=== PATIENT | female | born 1955 | race Caucasian/White ===

== ENCOUNTER 2016-11-24 17:30 | Inpatient (IN) | payer OTHER ==
--- NOTE | ~2016-11-24 | DS ---
Discharge Summary [facility] [address] [place]. [address] NAME: BELLA HARRISON : 51 STATUS : DIS IN PAT#: [id number] AGE: 61 ADM/REG DATE : 11/24/16 MR#: [id number] REPORT SERV DATE: 12/01/16 DICTATED BY: RAIZA SHEEHAN DATE: 11/30/16 REPORT STATUS : Draft TRANSCRIBED BY: MODL DATE: 11/30/16 ADMISSION DATE: 11/24/2016 DISCHARGE DATE: 11/30/2016 CONSULTING PHYSICIAN: Dr. Zhen Harrison of Ortho and Dr. Corado for Nephrology. Outpatient security team lead, Dr. Tom. FINAL DIAGNOSES: 1. Status post acute kidney injury on chronic kidney disease 3. 2. Acute polyarticular gout. 3. Chronic back pain. 4. Status post hyponatremia. 5. Status post hypokalemia. 6. Status post hypophosphatemia. 7. Status post hypomagnesemia. 8. Anemia of chronic disease. HOSPITAL COURSE: Please refer to the H and P done by myself dated on 11/25/2016 and my interim discharge summary done on 11/28/2016. Since my last discharge summary, the patient continued to improve, and we were able to taper down her steroids. We also started allopurinol on her and she was able to tolerate this without any side effects. Meanwhile, she started complaining about her chronic back pain and we started her on some Flexeril and it helped her and it actually made her work with Physical Therapy more. PT recommended [facility]. [facility], and today, we got [facility] to approve. The patient will now be discharged with the above diagnoses. She will follow up with the [place] doctor, then follow up with Dr. Elijah Garcia after [place] discharge and follow up with Nephro, Dr. Tom in two weeks. The patient will be on the following medications. Allopurinol 100 mg a day, Flexeril 5 mg three times a day, Protonix 40 mg a day; prednisone 30 mg tomorrow, 20 mg the next day, 10 mg then next day, then none; [place] 5/325 one tab p.o. q.8 hours p.r.n. pain and advised her to be off the Lasix and Maxzide for now until she follows up with Dr. Tom. This has been explained to her and she agreed and understood the plan. GERMAIN/SUSAN Raiza Sheehan M.D. / [id number] CC: Fauzia Carpenter M.D.
--- NOTE | ~2016-11-24 | HP ---
History And Physical [place] [id number] [facility] [place]. [address] NAME: BELLA HARRISON : 51 STATUS : ADM IN [facility]#: [id number] AGE: 61 ADM/REG DATE : 11/24/16 MR#: [id number] REPORT SERV DATE: 11/25/16 DICTATED BY: RAIZA SHEEHAN DATE: 11/24/16 REPORT STATUS : Draft TRANSCRIBED BY: MODL DATE: 11/24/16 DATE OF ADMISSION: 11/24/2016 MANAGER MAINTENANCE: Dimas Tom M.D. HISTORY OF PRESENT ILLNESS: This is a 61-year-old female, who was sent here from [place] for possible JENNY and right leg pain. The patient has been following up with Dr. Garcia and Dr. Tom. She was diagnosed with chronic kidney disease, and was told that her anemia, which is chronic is secondary to her kidney problem. Last Monday, which is about six days prior to present admission, the patient visited Dr. Tom, and she was told that her ultrasound shows decreased blood flow on her right kidney, and she will need to follow up with him the week after, which is tomorrow and discuss about possible dialysis. On Monday, which is 4 days prior to admission the patient woke up, and having some pain on her right leg. Her baseline is that she staggers and walks with a cane, and was still able to go to work, walking with a cane. However, the next day, Monday, three days prior to admission, the patient could not get up because of severe pain on her right leg. She tried to avoid walking by staying in bed and wears Depends at night, so that she does not have to get up. The patient thought that it would go away, however, it did not get any better. She still able to eat, but did not have any appetite and at one point had nausea and vomiting. She has tried to drink, but she noted that her p.o. intake is not as good. She continued taking her medication dose, which includes some diuretics in it. The patient finally decided to go to the hospital. She was brought to [facility], where they did blood work on her, which showed a BUN and creatinine of 68 and 2.4, sodium of 129, potassium of 3.1, bicarb of 14, chloride of 92, lactate of 1.91. WBC of 21.3, H and H of 10.1 and 30.4. The patient's potassium was replaced and gave her some fluids. They did an x-ray, which shows old healed left rib fractures, remodeling of the right humeral head is present, characteristic of old trauma, clear lungs with no infiltrate, pneumothorax or pleural effusion. Mediastinum is normal. The patient was then referred here, so that she can see her microfilm operator and also further workup of the leg. The patient denied any trauma. She has some dizziness, but no near syncopal or syncopal episode. She denied any hematemesis. She denies any dysuria or hematuria. Denies any bowel changes. No new rashes. She does have chronic joint pain, and the rest of the 14-point review of systems negative except as above. PAST MEDICAL HISTORY: Includes history of ulcers, hiatal hernia, CKD, spinal stenosis, anemia of chronic disease where she gets blood transfusions before. ALLERGIES: SHE HAS NO KNOWN DRUG ALLERGIES. MEDICATIONS: Include Tylenol, Lasix, Protonix, Maxzide. SOCIAL HISTORY: The patient drinks about 2 glasses of wine a day. No tobacco or recreational drug use. FAMILY HISTORY: She has a history of the dad with a stomach cancer, and the patient also has a history of abnormal loop of small bowel. History And Physical [address] [place]. [address] NAME: BELLA HARRISON : 51 STATUS : ADM IN [facility]#: [id number] AGE: 61 ADM/REG DATE : 11/24/16 MR#: [id number] REPORT SERV DATE: 11/25/16 DICTATED BY: RAIZA SHEEHAN DATE: 11/24/16 REPORT STATUS : Draft TRANSCRIBED BY: MODMorgan DATE: 11/24/16 PHYSICAL EXAMINATION: GENERAL: The patient is alert and oriented x3, not in cardiopulmonary distress. VITAL SIGNS: Include a pulse rate of 66, respiration of 18, saturation of 99% on room air, blood pressure of 118/71, temperature 98.8. NECK: She has supple neck. No JVD or carotid bruits. No lymphadenopathy. HEENT: [place] conjunctivae, anicteric sclerae. No pharyngeal erythema. LUNGS: Clear lungs. No rales, no wheezes. CARDIOVASCULAR: Regular rate and rhythm. No murmurs appreciated. ABDOMEN: Positive bowel sounds. Soft, nontender, no masses. Fair pulses. No edema. EXTREMITIES: Examination of the right leg reveals a tender left knee, but there do not seem to be any appreciable effusion, gross deformity, or open wound. There is tenderness on extreme knee flexion. There is also tenderness in the right ankle, but there is no open wound gross deformity or swelling. Examination of the right hip seems to be unremarkable. ASSESSMENT: 1. Right leg, knee, and ankle pain, inability to walk. 2. Chronic kidney disease, IV. 3. Leukocytosis. 4. Hypokalemia. 5. Hyponatremia. 6. History of esophageal ulcers and hiatal hernia. PLAN: Looking back at her records, the patient seems to have a creatinine that seems to be trending upward since the start of this year. I do not believe that she has an JENNY right now, but this must be a worsening CKD IV. It is unclear for me on what that recent imaging was done. I will get Nephrology to check on this thing. Meanwhile, we are going to check some x-rays of the right knee and ankle and get the Ortho evaluation, not sure if there is some ligament tears or tendon inflammation going on. I doubt if she has any fractures or dislocation. The patient will get a UA, urine culture. We will place a Hyman in, so we can measure the input and output. We will also get a blood culture, but hold of any kind of antibiotics while we figure out why the white count is elevated. We will give her some fluids and replace her potassium for now. This has been explained to the patient, and she agreed and understood the plan. GERMAIN/SUSAN Raiza Sheehan M.D. / [id number] CC: Fauzia Buchanan M.D.
--- NOTE | ~2016-11-24 | IDS ---
Interim Discharge Summary [facility] [address] [place]. [address] NAME: BELLA HARRISON : 51 STATUS : ADM IN [facility]#: [id number] AGE: 61 ADM/REG DATE : 11/24/16 MR#: [id number] REPORT SERV DATE: 11/28/16 DICTATED BY: RAIZA SHEEHAN DATE: 11/28/16 REPORT STATUS : Draft TRANSCRIBED BY: MODL DATE: 11/28/16 ADMISSION DATE: 11/24/2016 DISCHARGE DATE: CONSULTING PHYSICIANS: 1. Wood Model Maker, Dr. Corado. 2. Orthopedist, Dr. Zhen Harrison. INTERIM DIAGNOSES: 1. Acute polyarticular gout, improving. 2. Chronic back pain. 3. Status post acute kidney injury on chronic kidney disease 3. 4. Status post hyponatremia. 5. Status post hypokalemia. 6. Status post hypomagnesemia. 7. Hypophosphatemia. 8. Anemia of chronic disease. DIAGNOSTIC EXAMS: Right knee x-ray showing diffuse soft tissue swelling about the right knee joint. No other abnormality identified. Right ankle x-ray showing osseous demineralization. No acute abnormality. CAT scan of the brain showing moderate cerebral and cerebellar atrophy with intracranial atherosclerosis. No acute intracranial abnormality. HOSPITAL COURSE: Please refer to the H and P done by myself on 11/25/2016. Briefly, this is a 61-year-old female who was sent here from [place] for JENNY and right leg pain. The patient has been following up with Dr. Garcia and Dr. Tom and was diagnosed with CKD. It is unclear on what has been going on an outpatient basis as she told me that she was told by her kidney doctor that she has poor blood flow in her kidneys and would be needing dialysis and wanted to follow up with her in a week from the last visit. Unfortunately, she started having some right leg pain on top of her chronic back pain and was not able to get out of the bed. The patient was brought to [place] and they found an elevated creatinine and sent the patient here. We hydrated the patient, corrected her electrolytes, and we got Renal involved. With this conservative management, the patient's creatinine went down from 1.91 to 1.39. She was found to have multiple electrolyte abnormalities which are being replaced. Further evaluation revealed that she was having some multiple joint pains, but we felt some effusion in the right knee. We got Ortho involved, aspirated the joint, and found gout crystals. They signed off. We placed the patient on steroids, and we are seeing improvement of her swelling. We did not find any infection. So despite the white count being elevated, we discontinued the antibiotics. The patient right now is feeling better on her multiple joint pains namely the right knee, right ankle, left elbow, and left wrist, but is now having a hard time moving because of her chronic back pain. PT got involved and most likely they would recommend inpatient rehab and the patient agreed to that. So we will be continuing monitoring the patient, and we are going to get case management send her to Interim Discharge Summary [address] [place]. [address] NAME: BELLA HARRISON : 51 STATUS : ADM IN PAT#: [id number] AGE: 61 ADM/REG DATE : 11/24/16 MR#: [id number] REPORT SERV DATE: 11/28/16 DICTATED BY: RAIZA SHEEHAN. DATE: 11/28/16 REPORT STATUS : Draft TRANSCRIBED BY: SUSAN DATE: 11/28/16 inpatient rehab. A partner of [facility] will be following up the patient starting tomorrow morning. GERMAIN/SUSAN Raiza Sheehan M.D. / [id number] CC: Fauzia Buchanan M.D.
--- NOTE | ~2016-11-24 | CN ---
Consultation Report [place] [address] [facility] [place]. [address] NAME: BELLA DOUGLAS : 51 STATUS : ADM IN [facility]#: [id number] AGE: 61 ADM/REG DATE : 11/24/16 MR#: [id number] REPORT SERV DATE: 11/25/16 DICTATED BY: ZHEN DOUGLAS DATE: 11/25/16 REPORT STATUS : Draft TRANSCRIBED BY: MODL DATE: 11/25/16 CONSULTATION REPORT DATE OF CONSULTATION: 11/25/2016 CHIEF COMPLAINT: Right knee pain, right ankle pain, and left wrist pain. HISTORY OF PRESENT ILLNESS: The patient is a 61-year-old with a one-week history of right knee pain. She said that she has been having progressive right knee pain and right ankle pain which left her unable to weight bear on it. She said that she has noted swelling of her knee and her ankle. She denies any fever or chills at home. She also has left wrist pain bothering her for the last day. Pain with movement of her wrist. PAST MEDICAL HISTORY: Includes chronic kidney disease, spinal stenosis, hiatal hernia, anemia, chronic disease. ALLERGIES: NO KNOWN DRUG ALLERGIES. MEDICATIONS: Tylenol, Lasix, Protonix, and Maxzide. SOCIAL HISTORY: She drinks two glasses of wine a day. No tobacco. Lives with her , who is wheelchair bound. FAMILY HISTORY: Noncontributory. REVIEW OF SYSTEMS: Times 10 negative, except for above. PHYSICAL EXAMINATION: GENERAL: A well-developed, well-nourished female, in no acute distress. HEENT: Normocephalic and atraumatic. RESPIRATORY: Nonlabored respirations. Equal chest rise bilaterally. EXTREMITIES: No cyanosis or clubbing. She has edema with effusion of the right knee and swelling in the right ankle. SKIN: No rashes or lesions, right lower extremity. MUSCULOSKELETAL: Effusion of right knee pain with range of motion especially with terminal flexion. Tenderness to palpation around the knee. The right ankle with mild erythema and swelling. Soft tissue swelling around the ankle. Some range of motion with pain. 2+ pulse on the right lower extremity. Left wrist, no swelling, no erythema, pain with range of motion, tenderness on the dorsal wrist. PSYCH: Appropriate mood and affect. NEURO: Alert and oriented x3. ASSESSMENT: Consultation Report [place] [id number] [place] [address] NAME: BELLA DOUGLAS : 51 STATUS : ADM IN PAT#: [id number] AGE: 61 ADM/REG DATE : 11/24/16 MR#: [id number] REPORT SERV DATE: 11/25/16 DICTATED BY: ZHEN DOUGLAS DATE: 11/25/16 REPORT STATUS : Draft TRANSCRIBED BY: MODL DATE: 11/25/16 1. Right knee and ankle pain. 2. Chronic kidney disease. 3. Anemia. PLAN: I aspirated her right knee, which showed yellow, either purulent fluid or fluid within crystals, was sent into the lab for cell count as well as cultures, Gram stain and crystals. We will keep her n.p.o. until we find out the wrist and the ankle, possible tenosynovitis and inflammation. BSM/SUSAN Zhen Douglas MD / [id number] CC: Fauzia Buchanan M.D.
--- NOTE | ~2016-11-24 | CN ---
Consultation Report [facility] [address] [place]. [address] NAME: BELLA HARRISON : 51 STATUS : ADM IN PAT#: [id number] AGE: 61 ADM/REG DATE : 11/24/16 MR#: [id number] REPORT SERV DATE: 11/25/16 DICTATED BY: FRANCESCO CORADO DATE: 11/25/16 REPORT STATUS : Draft TRANSCRIBED BY: MODL DATE: 11/25/16 CONSULTATION DATE OF CONSULTATION: HISTORY OF PRESENT ILLNESS: This is a fairly pleasant, 61-year-old, female patient, seen in our office by Dr. Dimas Rios. She was seen at the request of her primary care provider Dr. Garcia for evaluation of rise in serum creatinine. She was known on consultation to chronically use nonsteroidal medications. A subsequent renal ultrasound identified a right renal atrophy supposedly due to right renal artery stenosis. There is no Doppler evidence of SMA or left renal artery stenosis. She had chronically used nonsteroidal medications due to chronic knee and back pain as she was previously very active and ran quite regularly. Creatinine on evaluation, 11/08/2016, was at 2.55. On subsequent followup, on 11/18/2016, it was at 1.94. Creatinine here today, on entry is at 1.91 with several obvious electrolyte abnormalities. Her CO2 is also depressed at 16. The patient is placed inpatient by the hospitalist service with an initial complaint of right lower extremity weakness and pain, and elevated serum creatinine. We are asked to evaluate the patient in light of her elevated serum creatinine by the hospitalist service in consideration for assistance in management, and the patient also states that she was concerned regarding "dialysis." She is awake and alert this morning, and is a reasonable historian. Denies current chest pain. No nausea, vomiting, or diarrhea. PAST MEDICAL HISTORY: Includes a history of ulcers, hiatal hernia, chronic kidney disease, history as above with Dr. Dimas Rios, spinal stenosis, anemia of chronic disease and has had required previous blood transfusions. ALLERGIES: SHE LISTS ALLERGY, NOW A LISINOPRIL. SHE HAD PREVIOUSLY USED LISINOPRIL PRIOR TO EVALUATION BY DR. RIOS IN OUR OFFICE. ACTIVE MEDICATIONS: Include heparin 5000 units subcu q.12h, Protonix 40 mg p.o. daily, normal saline at 100 mL an hour. P.r.n. Tylenol, morphine, and Phenergan is also available. REVIEW OF SYSTEMS: Completed. Please see HPI for pertinent details. SOCIAL HISTORY: Intermittent ETOH usage. No tobacco or recreational drug use. FAMILY HISTORY: Negative for end-stage renal disease or chronic kidney disease. PHYSICAL EXAMINATION: VITAL SIGNS: Blood pressure 112/65, temperature 99.7, heart rate is 98, respiratory rate is 17, she is 98% on room air. GENERAL: She is a small-framed woman, in no acute distress during evaluation. HEENT: Normocephalic and atraumatic. Normal ocular movements. No scleral icterus. No Consultation Report [place] [id number] [facility] [place]. [address] NAME: BELLA HARRISON : 51 STATUS : ADM IN [facility]#: [id number] AGE: 61 ADM/REG DATE : 11/24/16 MR#: [id number] REPORT SERV DATE: 11/25/16 DICTATED BY: FRANCESCO CORADO DATE: 11/25/16 REPORT STATUS : Draft TRANSCRIBED BY: SUSAN DATE: 11/25/16 conjunctival pallor is appreciated. NECK: Supple without thyromegaly. No JVD or mass. CHEST: Shows positive S1 and S2. No rubs or gallops. LUNGS: Clear to auscultation throughout. Normal expansion and effort bilaterally. GI: Examination shows positive bowel sounds in all four quadrants. No appreciable mass or tenderness. : Examination is deferred. NEUROLOGICALLY: She complains of weakness in her left upper extremity and is unable to lift it against gravity. Strength testing is difficult to perform as the patient complains of pain to touch on her left upper extremity. In discussion with the hospitalist service, she was able to move this extremity yesterday with no problems and no loss of strength. Primary complaint on admission was her right lower extremity which appears to be grossly intact at this point. Rudimentary neurologic testing otherwise appears to show that the patient is grossly intact overall. SKIN: Warm, dry, and intact to visualized surfaces. No rash, lesions, or ecchymosis. PSYCH: She is of appropriate mood and affect. LABORATORY DATA: Pertinent laboratories and imaging to this evaluation: Repeat serum potassium at 2.7. Ankle x-ray on the right, shows no acute abnormality. Knee of the same side shows diffuse tissue swelling. Otherwise, has no abnormality. Procalcitonin 19.81, magnesium 0.9. CBC shows a white blood cell count 15.4, RBC 2.57, hemoglobin 8.1, hematocrit 23.7, platelets of 314. Lactate is 0.5. Ionized calcium 3.58. Comprehensive metabolic panel; sodium 132, potassium 3.1, chloride 101, CO2 of 16, BUN 68, creatinine 1.91, reflected GFR at 27 mL/minute, glucose of 98, calcium 6.9, albumin 2.4, total protein 6.6, globulin 4.2, alkaline phos at 91, ALT and AST 7 and 15 respectively. IMPRESSION AND PLAN: This is a CKD, stage 3 to stage 4; chronic kidney disease patient, who is admitted to the hospitalist service for unilateral complaint of pain in her right lower extremity now with manifestations of the left upper extremity weakness and pain on exam this morning. She also has a noted leukocytosis and several electrolyte abnormalities. She is currently infusing with normal saline and also has what appears to be a calcium gluconate drip in light of her ionized calcium being low at 3.58. Discussed via telephone with her primary physician here, Dr. Kenneth Garcia, and we will undertake the following. In light of her chronic kidney disease, she is currently off KAROLINA inhibitors as well as ARBs, and lists KAROLINA inhibitor as an allergy, which will continue at this point. Advised the patient this morning that she is in no need of acute hemodialysis. We will change her fluids to quarter normal saline, 2 amps of bicarb with her depressed CO2 to continue the rate she is currently at, and evaluate blood culture, UA, C and S, and re-evaluate her renal panel considering her noted electrolyte abnormalities. Treat her serum potassium. Continue her calcium infusion at this point. Treat her magnesium and place her on vancomycin and Zosyn with Pharmacy to dose. Ask consultation from Neurologic Services for noted unilateral left upper extremity weakness. Ask Psychiatric Service to evaluate for question of psychosomatic disorder with manifestation of weakness, which seems to be transient in different areas of her body, given on 2 different examinations within 24 hours that weakness has moved from her right lower extremity to the left upper extremity. The patient will certainly need to be seen in Consultation Report [place] [address] [place]. [address] NAME: BELLA HARRISON : 51 STATUS : ADM IN PAT#: [id number] AGE: 61 ADM/REG DATE : 11/24/16 MR#: [id number] REPORT SERV DATE: 11/25/16 DICTATED BY: FRANCESCO CORADO DATE: 11/25/16 REPORT STATUS : Draft TRANSCRIBED BY: SUSAN DATE: 11/25/[address] Dimas Rios who has evaluated the patient at the request of Dr. Garcia, and will continue to be her primary supervisor brake repair post dismissal from this facility. Further modification of treatment plan may be made based on clinical presentation of the patient's laboratory results, further consultation with Renal attending. We appreciate consultation. We are glad to follow. DICTATED BY: Elijah Norwood NP JR/SUSAN Francesco Corado M.D. / [id number] CC: Kenneth Garcia M.D.
[~2016-11-24 17:30] MED LIST: ATARAX PO; ATV1 PO; COREG3 PO; EZFE 200200 MG PO; IBUPROFEN; IRON325 MG PO; KLOR-CON M2020 MEQ PO; L20 PO; MAGOX4 PO; MAXZIDE PO; MOTRIN IB200 MG PO; NEXIUM; OS500+D PO; PEPCID; PRILOSEC40 MG PO; PRIN20 PO; PRIN5 PO; PROTONIX PO; PROZAC PO; PROZAC40 MG PO; SEPTRA DS1 TAB PO; T PO; VITAMIN B PO; VITAMIN B-121000 MC1 PO
[2016-11-24] MEDS ORDERED: MAXZIDE PO (18:00)
[2016-11-24] MEDS ORDERED: PROTONIX PO ×2 (18:00)
[2016-11-24] MEDS ORDERED: L40 PO (18:00)
[2016-11-24] MEDS ORDERED: 8 HOUR650 MG PO (18:01)
[2016-11-25 05:23] LABS: INTERNATIONAL NORMAL RATI 1.1 UNITS (-)
[2016-11-25 05:32] LABS: PROTIME (NOT ORD) 14.3 SEC (12.0-14.5)
[2016-11-25 05:42] LABS: CHLORIDE, SERUM 101 MMOL/L (96-112); CO2 (CARBON DIOXIDE) 16 MMOL/L (24-34); CREATININE 1.91 MG/DL (0.55-1.02); GFR AFRICAN AMERICAN 32 ML/MIN (>=60); GFR NON AFRICAN AMERICAN 27 ML/MIN (>=60); GLUCOSE, SERUM 98 MG/DL (60-99); SGOT(AST) 15 U/L (5-40); SGPT(ALT) 7 U/L (5-65); SODIUM, SERUM 132 MMOL/L (135-148); TOTAL BILIRUBIN 0.5 MG/DL (0-1.2); TOTAL PROTEIN 6.6 G/DL (6.0-8.5)
[2016-11-25 05:53] LABS: BUN (BLOOD UREA NITROGEN) 68 MG/DL (6-23); POTASSIUM, SERUM 3.1 MMOL/L (3.5-5.3)
[2016-11-25 05:54] LABS: A/G RATIO 0.6 (0.7-1.9); ALBUMIN 2.4 G/DL (3.5-5.0); ALKALINE PHOSPHATASE 91 U/L (45-117); CALCIUM, SERUM 6.9 MG/DL (8.5-10.4); GLOBULIN 4.2 G/DL (2.5-4.1)
[2016-11-25 06:53] LABS: HEMOGLOBIN 8.1 g/dL (12.0-16.0); MEAN CORPUSCULAR HEMOGLOB 31.5 pg (26.0-34.0); MEAN PLATELET VOLUME 10.4 fL (9.2-13.0); PLATELET COUNT 314 10/3/uL (150-400); RED CELL COUNT 2.57 10/6/uL (4.0-5.6)
[2016-11-25 06:54] LABS: HEMATOCRIT 23.7 % (36.0-48.0); MANUAL DIFF YES %; MEAN CORPUS HGB CONC 34.2 g/dL (32.0-36.0); MEAN CORPUSCULAR VOLUME 92.2 fL (80-100); RBC DISTRIBUTION WIDTH 19.5 % (12.0-16.0); WHITE BLOOD CELLS 15.4 10/3/uL (4.5-10.5)
[2016-11-25 07:26] LABS: ANISOCYTOSIS 1+ (5-10/OIF) (0-5/OIF); LYMPHOCYTES 6 %; LYMPHOCYTES ABSOLUTE (CALC) 0.92 10/3/uL (0.67-4.30); MONOCYTES 6 %; MONOCYTES ABSOLUTE (CALC) 0.92 10/3/uL (0.21-1.20); NEUTROPHILS ABSOLUTE (CALC) 13.55 10/3/uL (2.02-8.40); PLATELET ESTIMATE ADQ (ADEQUATE); SEGMENTED NEUTROPHIL (0) 88 %; TOTAL NUCLEATED CELLS 100
[2016-11-25 08:00] LABS: PROCALCITONIN 19.81 ng/mL (<0.5)
[2016-11-25 12:46] LABS: ALBUMIN 2.3 G/DL (3.5-5.0); CHLORIDE, SERUM 102 MMOL/L (96-112); CO2 (CARBON DIOXIDE) 18 MMOL/L (24-34); CREATININE 1.73 MG/DL (0.55-1.02); GFR AFRICAN AMERICAN 36 ML/MIN (>=60); GFR NON AFRICAN AMERICAN 31 ML/MIN (>=60); IRON, SERUM 15 MCG/DL (35-150); SODIUM, SERUM 133 MMOL/L (135-148)
[2016-11-25 12:47] LABS: BUN (BLOOD UREA NITROGEN) 59 MG/DL (6-23); GLUCOSE, SERUM 148 MG/DL (60-99); PHOSPHORUS, SERUM 1.8 MG/DL (2.5-4.5); POTASSIUM, SERUM 3.3 MMOL/L (3.5-5.3)
[2016-11-25 16:03] LABS: BD FL LYMPH (NOT ORD) 3 %; BD FL SOURCE (NOT ORD) KNEE; BF BASO (NOT OF) 0 %; BF LARGE MONONUCLEAR 15 %; BODY FLUID EOS (NOT ORD) 0 %; BODY FLUID SEG (NOT ORD) 82 %
[2016-11-25 16:09] LABS: BODY FLUID RBC (NOT ORD) 40000 /MM3
[2016-11-25 16:10] LABS: BF TOTAL CELL CT (NOT ORD 83380 /MM3
[2016-11-25 21:28] LABS: ASCORBIC ACID (UR NOT ORDER) NEG (NEG); BILIRUBIN, URINE NEGATIVE (NEG); KETONE, URINE TRACE MG/DL (NEG); LEUKOCYTE ESTERASE(NOT OR NEG (NEG); WBC (NOT ORDERED) (RFLEX) 3 (0-5)
[2016-11-26 05:12] LABS: BASOPHILS 0.1 %; BASOPHILS ABSOLUTE 0.02 10/3/uL (0.0-0.16); EOSINOPHILS 0 %; HEMATOCRIT 23.7 % (36.0-48.0); HEMOGLOBIN 8.3 g/dL (12.0-16.0); IMMATURE GRANULOCYTES 1.5 %; IMMATURE GRANULOCYTES ABSOLUTE 0.24 10/3/uL (0.0-0.11); LYMPHOCYTES 2.2 %; LYMPHOCYTES ABSOLUTE 0.35 10/3/uL (0.67-4.30); MEAN CORPUSCULAR HEMOGLOB 32.7 pg (26.0-34.0); MEAN CORPUSCULAR VOLUME 93.3 fL (80-100); MEAN PLATELET VOLUME 10.4 fL (9.2-13.0); MONOCYTES 4.6 %; MONOCYTES ABSOLUTE 0.73 10/3/uL (0.21-1.20); NEUTROPHILS 91.6 %; NEUTROPHILS ABSOLUTE 14.59 10/3/uL (2.02-8.40); PLATELET COUNT 403 10/3/uL (150-400); RBC DISTRIBUTION WIDTH 19.5 % (12.0-16.0); RED CELL COUNT 2.54 10/6/uL (4.0-5.6); WHITE BLOOD CELLS 15.9 10/3/uL (4.5-10.5)
[2016-11-26 05:19] LABS: MANUAL DIFF NO %
[2016-11-26 05:20] LABS: CALCIUM IONIZED 3.87 MG/DL (3.80-4.80)
[2016-11-26 05:29] LABS: ALBUMIN 2.1 G/DL (3.5-5.0); CALCIUM, SERUM 7.6 MG/DL (8.5-10.4); CHLORIDE, SERUM 101 MMOL/L (96-112); CO2 (CARBON DIOXIDE) 21 MMOL/L (24-34); CREATININE 1.59 MG/DL (0.55-1.02); GFR AFRICAN AMERICAN 40 ML/MIN (>=60); GFR NON AFRICAN AMERICAN 34 ML/MIN (>=60); GLUCOSE, SERUM 170 MG/DL (60-99); POTASSIUM, SERUM 3.3 MMOL/L (3.5-5.3); SODIUM, SERUM 135 MMOL/L (135-148)
[2016-11-26 05:32] LABS: BUN (BLOOD UREA NITROGEN) 50 MG/DL (6-23); PHOSPHORUS, SERUM 2.7 MG/DL (2.5-4.5)
[2016-11-26 06:03] LABS: B NATRIURETIC PEPTIDE (BNP) 618.9 PG/ML (< 100.0)
[2016-11-27 07:29] LABS: BASOPHILS 0.1 %; BASOPHILS ABSOLUTE 0.01 10/3/uL (0.0-0.16); EOSINOPHILS 0 %; HEMATOCRIT 22.7 % (36.0-48.0); HEMOGLOBIN 7.8 g/dL (12.0-16.0); IMMATURE GRANULOCYTES 1.5 %; IMMATURE GRANULOCYTES ABSOLUTE 0.24 10/3/uL (0.0-0.11); LYMPHOCYTES 3.6 %; LYMPHOCYTES ABSOLUTE 0.56 10/3/uL (0.67-4.30); MEAN CORPUS HGB CONC 34.4 g/dL (32.0-36.0); MEAN CORPUSCULAR HEMOGLOB 31.8 pg (26.0-34.0); MEAN CORPUSCULAR VOLUME 92.7 fL (80-100); MEAN PLATELET VOLUME 10.7 fL (9.2-13.0); MONOCYTES 3.5 %; MONOCYTES ABSOLUTE 0.54 10/3/uL (0.21-1.20); NEUTROPHILS 91.3 %; NEUTROPHILS ABSOLUTE 14.16 10/3/uL (2.02-8.40); PLATELET COUNT 440 10/3/uL (150-400); RBC DISTRIBUTION WIDTH 19.6 % (12.0-16.0); RED CELL COUNT 2.45 10/6/uL (4.0-5.6); WHITE BLOOD CELLS 15.5 10/3/uL (4.5-10.5)
[2016-11-27 07:30] LABS: MANUAL DIFF NO %
[2016-11-27 07:39] LABS: ALBUMIN 1.9 G/DL (3.5-5.0); BUN (BLOOD UREA NITROGEN) 58 MG/DL (6-23); CALCIUM, SERUM 7.6 MG/DL (8.5-10.4); CHLORIDE, SERUM 100 MMOL/L (96-112); CO2 (CARBON DIOXIDE) 25 MMOL/L (24-34); CREATININE 1.57 MG/DL (0.55-1.02); GFR AFRICAN AMERICAN 40 ML/MIN (>=60); GFR NON AFRICAN AMERICAN 35 ML/MIN (>=60); GLUCOSE, SERUM 235 MG/DL (60-99); PHOSPHORUS, SERUM 1.9 MG/DL (2.5-4.5); POTASSIUM, SERUM 3.5 MMOL/L (3.5-5.3); SODIUM, SERUM 134 MMOL/L (135-148)
[2016-11-28 05:50] LABS: BASOPHILS 0.1 %; BASOPHILS ABSOLUTE 0.01 10/3/uL (0.0-0.16); EOSINOPHILS 0 %; HEMATOCRIT 22.7 % (36.0-48.0); HEMOGLOBIN 7.7 g/dL (12.0-16.0); IMMATURE GRANULOCYTES 1.7 %; IMMATURE GRANULOCYTES ABSOLUTE 0.27 10/3/uL (0.0-0.11); LYMPHOCYTES 3.1 %; LYMPHOCYTES ABSOLUTE 0.48 10/3/uL (0.67-4.30); MEAN CORPUS HGB CONC 33.9 g/dL (32.0-36.0); MEAN CORPUSCULAR HEMOGLOB 31.8 pg (26.0-34.0); MEAN CORPUSCULAR VOLUME 93.8 fL (80-100); MEAN PLATELET VOLUME 11.2 fL (9.2-13.0); MONOCYTES 5.5 %; MONOCYTES ABSOLUTE 0.87 10/3/uL (0.21-1.20); NEUTROPHILS 89.6 %; PLATELET COUNT 535 10/3/uL (150-400); RBC DISTRIBUTION WIDTH 20.1 % (12.0-16.0); RED CELL COUNT 2.42 10/6/uL (4.0-5.6); WHITE BLOOD CELLS 15.7 10/3/uL (4.5-10.5)
[2016-11-28 05:55] LABS: MANUAL DIFF NO %
[2016-11-28 06:01] LABS: BUN (BLOOD UREA NITROGEN) 57 MG/DL (6-23); CALCIUM, SERUM 7.9 MG/DL (8.5-10.4); CHLORIDE, SERUM 106 MMOL/L (96-112); CO2 (CARBON DIOXIDE) 22 MMOL/L (24-34); CREATININE 1.39 MG/DL (0.55-1.02); GFR AFRICAN AMERICAN 47 ML/MIN (>=60); GFR NON AFRICAN AMERICAN 40 ML/MIN (>=60); GLUCOSE, SERUM 189 MG/DL (60-99); POTASSIUM, SERUM 4.2 MMOL/L (3.5-5.3); SODIUM, SERUM 138 MMOL/L (135-148)
[2016-11-29 05:09] LABS: BUN (BLOOD UREA NITROGEN) 51 MG/DL (6-23); CHLORIDE, SERUM 107 MMOL/L (96-112); CO2 (CARBON DIOXIDE) 21 MMOL/L (24-34); CREATININE 1.14 MG/DL (0.55-1.02); GFR AFRICAN AMERICAN 59 ML/MIN (>=60); GFR NON AFRICAN AMERICAN 51 ML/MIN (>=60); GLUCOSE, SERUM 149 MG/DL (60-99); PHOSPHORUS, SERUM 2.4 MG/DL (2.5-4.5); POTASSIUM, SERUM 3.4 MMOL/L (3.5-5.3); SODIUM, SERUM 141 MMOL/L (135-148)
[2016-11-29 05:38] LABS: HEMATOCRIT 23.9 % (36.0-48.0); HEMOGLOBIN 7.9 g/dL (12.0-16.0); MEAN CORPUS HGB CONC 33.1 g/dL (32.0-36.0); MEAN CORPUSCULAR HEMOGLOB 31.5 pg (26.0-34.0); MEAN CORPUSCULAR VOLUME 95.2 fL (80-100); MEAN PLATELET VOLUME 11.1 fL (9.2-13.0); PLATELET COUNT 627 10/3/uL (150-400); RBC DISTRIBUTION WIDTH 19.8 % (12.0-16.0); RED CELL COUNT 2.51 10/6/uL (4.0-5.6); WHITE BLOOD CELLS 15.1 10/3/uL (4.5-10.5)
[2016-11-29 05:39] LABS: MANUAL DIFF YES %
[2016-11-29 06:14] LABS: IMMATURE GRANS ABSOLUTE (CALC) 0.15 10/3/uL (0.0-0.11); LYMPHOCYTES 3 %; LYMPHOCYTES ABSOLUTE (CALC) 0.45 10/3/uL (0.67-4.30); MONOCYTES 3 %; MONOCYTES ABSOLUTE (CALC) 0.45 10/3/uL (0.21-1.20); MYELOCYTES 3 %; NEUTROPHILS ABSOLUTE (CALC) 14.04 10/3/uL (2.02-8.40); PLATELET ESTIMATE INC (ADEQUATE); RBC MORPHOLOGY NORM (NORMAL); SEGMENTED NEUTROPHIL (0) 90 %; TOTAL NUCLEATED CELLS 100
[2016-11-30 05:03] LABS: BUN (BLOOD UREA NITROGEN) 50 MG/DL (6-23); CALCIUM, SERUM 8.2 MG/DL (8.5-10.4); CHLORIDE, SERUM 110 MMOL/L (96-112); CO2 (CARBON DIOXIDE) 21 MMOL/L (24-34); CREATININE 1.23 MG/DL (0.55-1.02); GFR AFRICAN AMERICAN 54 ML/MIN (>=60); GFR NON AFRICAN AMERICAN 47 ML/MIN (>=60); GLUCOSE, SERUM 128 MG/DL (60-99); PHOSPHORUS, SERUM 2.5 MG/DL (2.5-4.5); POTASSIUM, SERUM 3.6 MMOL/L (3.5-5.3); SODIUM, SERUM 142 MMOL/L (135-148)
== END 2016-11-30 19:02 | DRG 682 ==
LOC: 2SO 17:30
PROVIDERS: Hospitalist; Internal Medicine; Orthopaedic Surgery Sports Medicine; Registered Nurse
PROC: 0S9C3ZZ Drainage of Right Knee Joint, Percutaneous Approach (ICD-10-PCS; principal; 2016-11-25)
DX: N17.9 Acute kidney failure, unspecified (principal); R65.11 Systemic inflammatory response syndrome (SIRS) of non-infectious origin with acute organ dysfunction; E87.1 Hypo-osmolality and hyponatremia; M10.9 Gout, unspecified; M25.571 Pain in right ankle and joints of right foot; N18.4 Chronic kidney disease, stage 4 (severe); M25.561 Pain in right knee; E87.6 Hypokalemia; K44.9 Diaphragmatic hernia without obstruction or gangrene; D63.1 Anemia in chronic kidney disease; M48.00 Spinal stenosis, site unspecified; M54.9 Dorsalgia, unspecified; G89.29 Other chronic pain; E83.39 Other disorders of phosphorus metabolism; E83.42 Hypomagnesemia; M25.461 Effusion, right knee; I70.1 Atherosclerosis of renal artery; Z80.0 Family history of malignant neoplasm of digestive organs; Z87.11 Personal history of peptic ulcer disease
CPT/HCPCS: 70450; 73560-RT; 73610-RT; 80048; 80053; 80069; 80202; 81001; 82330; 82607; 82746; 83540; 83605; 83735; 83880; 84100; 84132; 84145; 84550; 85025; 85610; 85730; 87040; 87070; 87205; 89051; 89060; 97162-GP; 97165-GO; 97530-GP; 97535-GO; A9270-GY; J0610; J2920; J3370; J3475

== ENCOUNTER 2016-12-09 21:19 | Inpatient (IN) | payer OTHER ==
--- NOTE | ~2016-12-09 | CN ---
Consultation Report [facility] [address] [facility] [place]. [address] NAME: SHERRY HARRISON : 51 STATUS : ADM IN [facility]#: [id number] AGE: 61 ADM/REG DATE : 12/10/16 MR#: [id number] REPORT SERV DATE: 12/10/16 DICTATED BY: SANYA ERAZO DATE: 12/10/16 REPORT STATUS : Draft TRANSCRIBED BY: MODL DATE: 12/10/16 CARDIOLOGY CONSULTATION DATE OF CONSULTATION: INDICATIONS: Abnormal troponin. HISTORY OF PRESENT ILLNESS: Sherry Harrison is a 61-year-old female with no history of ischemic heart disease, no history of cardiomyopathy. 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 She has had a bit of a complicated course. She apparently was in [facility] recently with renal issues, some hyponatremia, leukocytosis, acute on chronic kidney disease. She was then sent to [facility] for a period of time. There has been a concern for underlying sepsis refractory to antibiotics and she was sent back to the hospital, febrile with sinus tachycardia and elevated white count. She reports no chest pain. She reports no chronic shortness of breath. She was told was from her kidneys. No syncope. Some lower extremity edema. No active orthopnea. PAST MEDICAL HISTORY: Chronic kidney disease, history of renal artery stenosis with right renal atrophy, anemia of chronic disease, deconditioning, gout with polyneuropathy, reflux disease. PRESENT MEDICATIONS: Acyclovir, albumin, allopurinol, Bumex, Citracal, Flexeril, Colace, Neurontin, heparin, Levaquin, multivitamin, magnesium oxide, Protonix, Florastor, and MiraLAX. ALLERGIES: LISINOPRIL. SOCIAL HISTORY: No present smoking. FAMILY HISTORY: Reviewed and noncontributory. REVIEW OF SYSTEMS: As per the HPI. Otherwise, all review of systems negative. PHYSICAL EXAMINATION: VITAL SIGNS: Blood pressure 124/71, pulse 127, respiratory rate is 18. Telemetry is sinus tachycardia. ECG is sinus tachycardia. GENERAL: Appears stated age, no distress. EYES: Sclerae anicteric, no arcus senilis. MOUTH: Oral mucosa moist, lips acyanotic. NECK: Jugular venous pressure normal, no carotid bruits. LUNGS: Clear to auscultation bilaterally, normal inspiratory effort. CARDIAC: Irregular rhythm. Tachycardia. ABDOMEN: Soft, nondistended, nontender. Consultation Report [address] [place]. [address] NAME: SHERRY HARRISON : 51 STATUS : ADM IN [facility]#: [id number] AGE: 61 ADM/REG DATE : 12/10/16 MR#: [id number] REPORT SERV DATE: 12/10/16 DICTATED BY: SANYA ERAZO DATE: 12/10/16 REPORT STATUS : Draft TRANSCRIBED BY: MODL DATE: 12/10/16 EXTREMITIES: Mild edema. SKIN: Warm and dry. NEURO/PSYCH: Alert and oriented, nonfocal, mood appropriate. DATA: Creatinine 1.8. Hemoglobin 8.6, white count 21. BNP a 1051. Chest x-ray currently pending. Troponin 0.17. Procalcitonin 3.6. IMPRESSION: 1. Abnormal troponin likely demand ischemia event related to sepsis and sinus tachycardia. 2. Abnormal troponin, the Bmax is ordered, likely related to chronic kidney disease. 3. Chronic kidney disease with acute kidney injury. 4. Sepsis. RECOMMENDATIONS: We will obtain echocardiogram. Note that Bmax is already ordered. We will follow up troponin. ANGI/SUSAN Sanya Erazo M.D. / [id number] CC: Fauzia Jackson M.D.
--- NOTE | ~2016-12-09 | CN ---
Consultation Report [facility] [address] [facility] [place]. [address] NAME: BELLA HARRISON : 51 STATUS : ADM IN [facility]#: [id number] AGE: 61 ADM/REG DATE : 12/10/16 MR#: [id number] REPORT SERV DATE: 12/19/16 DICTATED BY: TEX PLUMMER DATE: 12/19/16 REPORT STATUS : Draft TRANSCRIBED BY: MODL DATE: 12/19/16 CONSULTATION DATE OF CONSULTATION: REASON FOR REFERRAL: Abnormal bone marrow. HISTORY OF PRESENT ILLNESS: Misael Go presented to the hospital on 12/10/2016, with several weeks of increasingly severe lower back pain associated with the fever and leukocytosis. It is only partially relieved with pain medications. At the time of admission, her white blood cell count was 21.5, hemoglobin 8.6, platelets of 407. She has had evaluation including an MRI of the spine which I have personally reviewed. The bone marrow was markedly abnormal. There is evidence of diskitis. She has had a biopsy. The bone marrow is consistent with a reactive or activated bone marrow which can occur with bleeding and anemia, myelodysplastic syndrome, myeloma, or an infection. She has had a polyarticular arthritis possibly related to gout. PAST MEDICAL HISTORY: Possible diskitis, inflammatory polyarticular arthritis, anemia CKD stage 3, and spinal stenosis. SOCIAL HISTORY: She is a former cigarette smoker. She does not drink alcohol. She is . FAMILY HISTORY: Her father had stomach cancer. There is no history of blood disorder. REVIEW OF SYSTEMS: Complete review of systems was performed and is positive as per the HPI. She has not had cough or chest pain. She does have severe back pain which persists. PHYSICAL EXAMINATION: GENERAL: Reveals a frail, thin woman, in noted acute distress. VITAL SIGNS: Temperature 97.5, blood pressure 113/66, pulse 19. HEENT: Eye exam showed the lids and conjunctivae are without lesions. The pupils are equal, round, reactive. Mouth; the lips and gums show no abnormalities. Oropharynx without thrush or stomatitis. NECK: Supple. There is no thyromegaly or mass. SKIN: Without rash, nodules, or ecchymoses. LYMPHATIC: Lymph node exam shows no cervical, supraclavicular, or axillary nodes. CARDIOVASCULAR: Reveals a regular rate and rhythm without murmur. There is no peripheral edema. LUNGS: Clear to auscultation bilaterally with normal respiratory effort. ABDOMEN: Soft. There is no hepatosplenomegaly or mass. PSYCHIATRIC: Shows normal insight and judgment with appropriate mood and affect. Consultation Report [facility] [address] [place]. [address] NAME: BELLA HARRISON : 51 STATUS : ADM IN PAT#: [id number] AGE: 61 ADM/REG DATE : 12/10/16 MR#: [id number] REPORT SERV DATE: 12/19/16 DICTATED BY: TEX PLUMMER DATE: 12/19/16 REPORT STATUS : Draft TRANSCRIBED BY: MODL DATE: 12/19/16 DATA REVIEW: CBCs are as outlined in the HPI. MRI is as described which I personally reviewed. The CT scan from 12/10/2016, which was also personally reviewed, shows some straining of the kidney. There was no adenopathy or splenomegaly to suggest lymphoma. ASSESSMENT: 1. Abnormal bone marrow. I suspect this is secondary to whatever her underlying inflammatory processes. I will follow up the biopsy of the disk with you. 2. Anemia, likely anemia of chronic disease, anemia of chronic kidney disease. We will follow. 3. Leukocytosis, this has improved. I will be following along with you. DAYAN/SUSAN Tex Plummer M.D. / [id number] CC: Jerome Albarado Jr, MD Elijah Garcia M.D.
--- NOTE | ~2016-12-09 | CN ---
Consultation Report [facility] [address] [place]. [address] NAME: BELLA HARRISON : 51 STATUS : DIS IN PAT#: [id number] AGE: 61 ADM/REG DATE : 12/10/16 MR#: [id number] REPORT SERV DATE: 12/26/16 DICTATED BY: LISSETT VELASQUEZ II DATE: 12/26/16 REPORT STATUS : Draft TRANSCRIBED BY: MODL DATE: 12/26/16 DATE OF CONSULTATION: 12/15/2016 CHIEF COMPLAINT: Low back pain with leg pain. HISTORY OF PRESENT ILLNESS: Ms. Harrison is a very friendly 61-year-old female, who works at the [employer]. She reports a history of osteoporosis as well as back problems. She had considered surgery several years ago, but ultimately did not pursue it. I was asked to see her for back and leg pains. She reports that the pain is severe when she stands and tries to walk. The pain radiates from the back into the legs. She also was hospitalized on this admission with sepsis and a UTI and pneumonia. PAST MEDICAL HISTORY: As above. SOCIAL HISTORY: She does take care of her also, but she also works again at the [employer] here in [place]. MEDICATIONS: Please see the MAR. REVIEW OF SYSTEMS: The patient denies any bowel or bladder changes. She denies any chest pain or shortness of breath. PHYSICAL EXAMINATION: GENERAL: Reveals a female in no distress. She is awake, alert, and oriented. CHEST: Reveals no stridor on inspiration or expiration. CARDIOVASCULAR: Regular rate and rhythm when I palpate the radial pulse. ABDOMEN: Soft. PSYCHIATRIC: Reveals no agitation nor confusion. NEUROLOGICAL: She is 4/5 in lower extremities. She reports normal sensation. IMAGING: MRI shows severe multilevel stenosis with a spondylolisthesis at L4-5. There does appear to be some significant signal change within the disk at L4-5, which could represent acute diskitis. IMPRESSION AND PLAN: Severe back and leg pains. She appears to have a significantly degenerative spine with stenosis and spondylolisthesis. However, I cannot rule out completely the fact that she may have acute diskitis at L4-5. I have discussed this with Dr. Everette Yo and also we will order a CT-guided biopsy of L4-5 to see if this can delineate whether there is infection or not. JJ/SUSAN Consultation Report [facility] [address] [place]. [address] NAME: BELLA HARRISON : 51 STATUS : DIS IN PAT#: [id number] AGE: 61 ADM/REG DATE : 12/10/16 MR#: [id number] REPORT SERV DATE: 12/26/16 DICTATED BY: LISSETT VELASQUEZ II DATE: 12/26/16 REPORT STATUS : Draft TRANSCRIBED BY: MODMorgan DATE: 12/26/16 Lissett Velasquez II, M.D. / [id number] CC: Fauzia Jackson M.D.
--- NOTE | ~2016-12-09 | IDS ---
Interim Discharge Summary [facility] [address] [place]. [address] NAME: BELLA HARRISON : 51 STATUS : ADM IN [facility]#: [id number] AGE: 61 ADM/REG DATE : 12/10/16 MR#: [id number] REPORT SERV DATE: 12/18/16 DICTATED BY: JR. ALBARADO WILLIAM JOHN DATE: 12/18/16 REPORT STATUS : Draft TRANSCRIBED BY: MODMorgan DATE: 12/18/16 ADMISSION DATE: 12/10/2016 DISCHARGE DATE: This interim summary covers the time period from 12/13/2016 through 12/18/2016. WORKING DIAGNOSES: 1. Sinus tachycardia with normal TSH and echocardiogram. 2. L4-L5 abnormality on MRI, possibly consistent with osteomyelitis and diskitis. 3. Inflammatory polyarticular arthritis. 4. Microcytic anemia. 5. Chronic kidney disease, stage III with non-nephrotic range proteinuria. 6. History of spinal stenosis. OPERATIONS, PROCEDURES, AND TREATMENTS: 1. CT of the brain done on 12/09/2016, which showed no acute intracranial pathology, there was stable moderate diffuse cerebral involutional changes, and probable subtle 2 mm old lacunar infarct in left basal ganglia. 2. Chest x-ray done on 12/09/2016, which showed cardiomegaly, hiatal hernia. No other findings. 3. CT of the abdomen and pelvis done on 12/10/2016, which showed minimal stranding around the lower pole the right kidney with a non-obstructed collecting system. The gallbladder was full and borderline distended with evidence for gallstones. No evidence for ductal dilatation. There was some whole body anasarca. 4. Portable chest x-ray done on 12/11/2016, it was normal. 5. Chest x-ray done on 12/14/2016, which showed subsegmental atelectasis and/or infiltrate in the right hilum. 6. Ventilation perfusion scan done on 12/14/2016, which showed asymmetrical activity of the lungs with greater activity on the right than the left, findings possibly due to partial obstruction of the right mainstem bronchus. There was no large subsegmental or larger perfusion abnormality with normal ventilation, low probability of pulmonary embolism. 7. Venous Doppler ultrasound, bilateral lower extremities, showed no evidence of clot in either extremity. 8. MRI of the lumbar spine done on 12/14/2016, which showed signature alteration with loss of endplate definition at L4-L5, most suspicious for underlying diskitis and osteomyelitis. There is similar but less progress changes at L2-L3 endplates. There was spondylitic change from L3-S1 and markedly abnormal bone marrow being hypercellular and heterogeneous, it would fit with severe anemia, and reactivation bone marrow, versus widespread metastatic disease or multiple myeloma, or some other form of blood dyscrasia. 9. Deep bone biopsy of the disk and lumbar spine on 12/16/2016, Gram stain is without organisms. Pathology and cultures are pending. CURRENT MEDICATIONS: Please see today's list. Interim Discharge Summary [facility] [address] [place]. [address] NAME: BELLA HARRISON : 51 STATUS : ADM IN [facility]#: [id number] AGE: 61 ADM/REG DATE : 12/10/16 MR#: [id number] REPORT SERV DATE: 12/18/16 DICTATED BY: JR. ALBARADO WILLIAM JOHN DATE: 12/18/16 REPORT STATUS : Draft TRANSCRIBED BY: SUSAN DATE: 12/18/16 HOSPITAL COURSE: Briefly, the patient is a 61-year-old female presented from [facility] with increased weakness, debility, volume overload, and evidence of infection. The patient was hospitalized from 11/24/2016 through 11/30/2016 at [facility] for what was felt to be an acute gout flare with bilateral ankles and feet, plus acute kidney injury. She was stabilized, but was found to have severe debility and was subsequently transferred to [facility] for rehab. About one week prior chest x-ray at [facility], showed the patient had an underlying pneumonia, she was started on Levaquin. The patient made no progress in therapy and complained of progressive low back pain. With 10/10 pain without sciatica. She was subsequently transferred back to [facility]. Please see Dr. Kessler's dictated history and physical for further details. The patient was admitted to [facility] regarding her sinus tachycardia. The patient continuously ran a heart rate in the 110s to 120s. She denied any change in the pain as a cause. She underwent an echocardiogram which showed left ventricular systolic function of 53%, mild diastolic dysfunction. Right ventricle function was intact. No valvular abnormalities. She also had a thyroid-stimulating hormone which was normal. Her medications were changed, increased her metoprolol to 50 b.i.d. with subsequent adding of oral diltiazem. Regarding the patient's inflammatory polyarticular arthritis, she had a rather extensive workup, including an SETH that was less than 1:40, serum protein electrophoresis, which showed a faint questionable restriction noted in the gamma region. Immunofixation was normal. She continued to complain of back pain. She has subsequently underwent an MRI of the lumbar spine and was seen in consultation by Spine Surgery. The MRI is as detailed above and was suspicious for osteomyelitis and diskitis. She was not started on antibiotics. She had a deep bone biopsy which is currently pending, both for culture and pathology. Spine surgery will further evaluate. Regarding abnormal bone marrow seen on MRI, she has had a serum protein electrophoresis. I will defer further workup to Hematology, we will request a Hematology consult in the morning. As to the patient's chronic kidney disease. She was followed briefly by Nephrology, as she proved to have non nephrotic range proteinuria. The patient's care will be assumed by my partner in the morning. CONSULTING PHYSICIANS: 1. Dr. Everette Yo of Infectious Disease. 2. Dr. Sanya Erazo of Cardiology. WJF/SUSAN Jerome Albarado Jr, MD Interim Discharge Summary [address] [address] NAME: BELLA HARRISON : 51 STATUS : ADM IN [facility]#: [id number] AGE: 61 ADM/REG DATE : 12/10/16 MR#: [id number] REPORT SERV DATE: 12/18/16 DICTATED BY: JR. ALBARADO WILLIAM JOHN DATE: 12/18/16 REPORT STATUS : Draft TRANSCRIBED BY: YOLANDAL DATE: 12/18/16 / [id number] CC: Jerome Albarado Jr, MD John Laramore, M.D.
--- NOTE | ~2016-12-09 | DS ---
Discharge Summary [facility] [address] [facility] [place]. [address] NAME: BELLA HARRISON : 51 STATUS : DIS IN PAT#: [id number] AGE: 61 ADM/REG DATE : 12/10/16 MR#: [id number] REPORT SERV DATE: 12/23/16 DICTATED BY: MARIE BLOUNT DATE: 12/22/16 REPORT STATUS : Draft TRANSCRIBED BY: MODL DATE: 12/22/16 ADMISSION DATE: 12/10/2016 DISCHARGE DATE: 12/22/2016 DISCHARGE DIAGNOSES: 1. Generalized weakness with inability to walk with severe spinal stenosis multilevel. 2. Chronic kidney disease with anasarca presentation on initial presentation. 3. Hypoalbuminemia. 4. Inflammatory arthritis. 5. Hypokalemia and hypomagnesemia on presentation on admission. CONSULTANTS: 1. Everette Yo M.D. 2. Shankar Velasquez M.D. 3. Nephrology Associate. HISTORY OF PRESENT ILLNESS: This is a 61-year-old female patient, who was transferred from [facility] with complaint of inability to perform the rehabilitation due to the severe low back pain and weakness, and swelling. Please see dictated H and P done by Dr. Kessler. The patient was admitted to the hospital with severe back pain, chronic kidney disease with elevated BNP with volume overload presentation. Please see dictated H and P. HOSPITAL COURSE: She was admitted to the hospital with above problems. Seen by multiple consultants due to the concern for the sepsis. Dr. Yo has been following this patient. She was not given any antibiotics. She did not show any worsening clinical presentation in terms of Infectious Disease soriano. However, she had a recent hospitalization with the same problem. At that time, she was treated for inflammatory arthritis with steroid, and she was put on allopurinol for the treatment. When she came in, she got a dose of diuretics and dose of steroid which made a significant improvement in her joint feeling and able to support her spine. After that she was also found to have a severe hypoalbuminemia with severe electrolyte imbalance which is hypokalemia and hypomagnesemia which was all replaced. She does not have any nephritic range on high proteinuria, but she does have significant proteinuria and hypoalbuminemia. She is a vegetarian and her protein intake is very poor. Supplement of the protein orally is given. She was remained on allopurinol dose three times a day. Due to the back pain she was checked with MRI which showed a possible bone marrow signal change. Dr. Mathews was also called for abnormal bone marrow signal on MRI. The patient was decided to have a spine biopsy for the spinal lesion to rule out acute infection. Dr. Velasquez was consulted and he did a biopsy for the spine which the results are not showing any acute inflammation, it showed chronic reactive changes only. Although, the biopsies spasticity is very low. The patient did not have any other clinical symptoms of disc infection. Also the patient declined to have any further surgery for her back. Therefore, the patient has been directed to get more rehabilitation, and she chose to go to [facility] and [facility] has approved for her to stay for her rehabilitation. She will be discharged to [facility] today for ongoing rehabilitation. I explained to her about her current Discharge Summary [address] [place]. [address] NAME: BELLA HARRISON : 51 STATUS : DIS IN PAT#: [id number] AGE: 61 ADM/REG DATE : 12/10/16 MR#: [id number] REPORT SERV DATE: 12/23/16 DICTATED BY: MARIE BLOUNT DATE: 12/22/16 REPORT STATUS : Draft TRANSCRIBED BY: SUSAN DATE: 12/22/16 situation and the back pain and treatment, and she voiced understanding. DISCHARGE MEDICATIONS: 1. Continue allopurinol 100 mg three times a day. 2. Calcium Citrate-Vitamin three times a day. 3. Flexeril 5 mg every hour. 4. Cardizem CD 120 mg once a day. 5. Colace 100 mg twice a day. 6. Lasix 10 mg once a day. 7. Neurontin 100 mg twice a day and 300 mg once at bedtime. 8. Multivitamin once a day. 9. Mag-Ox 400 mg twice a day. 10.Lopressor 50 mg once a day. 11.MD Leon twice a day. 12.Protonix 40 mg once at nighttime. 13.MiraLAX powder once a day. 14.Potassium 40 mEq twice a day. 15.Probiotic once a day. 16.Tylenol 325 mg once a day. 17.Xanax as needed. 18.Dulcolax as needed. 19.Hydrocodone as needed. 20.Atrovent twice a day. 21.Beneprotein one pack three times a day. DISPOSITION: The patient is discharged to [facility] for rehabilitation. TIME SPENT: More than 30 minutes on coordination and education. DICTATED BY: Fauzia Jackson/SUSAN Marie Blount M.D. / [id number] CC: Fauzia Jackson M.D.
--- NOTE | ~2016-12-09 | HP ---
History And Physical [place] [id number] [facility] [place]. [address] NAME: BELLA HARRISON : 51 STATUS : ADM IN [facility]#: [id number] AGE: 61 ADM/REG DATE : 12/10/16 MR#: [id number] REPORT SERV DATE: 12/10/16 DICTATED BY: LILLI ALBARADO DATE: 12/10/16 REPORT STATUS : Draft TRANSCRIBED BY: MODL DATE: 12/10/16 DATE OF ADMISSION: 12/10/2016 CHIEF COMPLAINT: A 61-year-old female presenting from [facility] with increasing weakness, debilitation, volume overload, and evidence of infection unresponsive to Levaquin. HISTORY OF PRESENTING ILLNESS: The patient's history was obtained through careful interview with the patient, coupled with review of [facility] and [facility] medical records. The patient was hospitalized between 11/24/2016 and 11/30/2016 for what was described as an acute gout flare of her bilateral ankles and feet plus acute kidney injury. She was stabilized, but had severe weakness and debilitation, and in fact, was so weak that she could not even get out of bed. Therefore, she was transferred to [facility], where she has been attempted for rehabilitation, but without really any progress at all. The patient states that she is unable to walk and has just been bed bound since she has been at [facility] over these last 10 days. About a week ago, a chest x-ray was obtained at [facility] and it was thought that the patient had underlying pneumonia. She was started on Levaquin for this. Finally, [facility] realized that the patient was not progressing with physical therapy at all and just seemed to be getting more and more debilitated and ill, so felt that she needed to come back to our emergency department for further evaluation and stabilization. Her main pain complaint has actually been progressive lower back pain. She describes it as an aching quality discomfort exacerbated by any kind of movement of her back and attempts at weightbearing. A 10/10 excruciating pain as she describes it. It does not radiate into her pelvis or her legs. There is no sciatica. She has had to be evaluated by Wound Care for blisters around her ankles and feet in the area where she was apparently being treated for "gout". She describes abdominal bloating, but no pain associated with this. No nausea or vomiting. She has gained 13 pounds in fluid over the last two weeks. No dysuria. No urinary frequency. The patient has noticed a prominent wheeze and shortness of breath characterized by dyspnea on exertion. No chest pain. No orthopnea. REVIEW OF SYSTEMS: Otherwise, a 14-point review of systems was obtained and was negative. PAST MEDICAL HISTORY: 1. Chronic kidney disease stage 3. Baseline creatinine seems to be around 1.3, followed History And Physical [address] [address] NAME: BELLA HARRISON : 51 STATUS : ADM IN [facility]#: [id number] AGE: 61 ADM/REG DATE : 12/10/16 MR#: [id number] REPORT SERV DATE: 12/10/16 DICTATED BY: LILLI ALBARADO DATE: 12/10/16 REPORT STATUS : Draft TRANSCRIBED BY: MODMorgan DATE: 12/10/[address] Garcia. 2. Peptic ulcer disease, esophageal ulcers, seen by Dr. Camargo. 3. Anemia with history of multiple transfusions. 4. Gout. 5. Spinal stenosis. 6. Hypocalcemia. 7. Cecal arterial venous malformation. 8. Stroke by CT scan, a lacunar left basal ganglia. 9. Cholelithiasis. PAST SURGICAL HISTORY: 1. Right forearm. 2. Tubal reconstruction? ALLERGIES: LISINOPRIL. SOCIAL HISTORY: Quit smoking more than 10 years ago. Was drinking about two glasses of wine a night. , but is in poor health, wheelchair bound. She has no biological children. She has recently been rehabilitating at [facility]. FAMILY HISTORY: Father with stomach cancer. CURRENT MEDICATIONS: Include Tylenol, acyclovir 800 mg p.o. daily, allopurinol 100 mg p.o. daily, Xanax 0.25 mg p.o. t.i.d., Dulcolax, calcium citrate, Flexeril every eight hours, Colace 100 mg p.o. b.i.d., Lasix 10 mg p.o. daily, Neurontin 100 mg p.o. b.i.d. and 300 mg at bedtime, hydrocodone, heparin 5000 units subcutaneous twice a day, Atrovent, lactobacillus, Levaquin 750 mg p.o. daily, magnesium 400 mg p.o. b.i.d., multivitamin, Protonix 40 mg p.o. daily, MiraLAX packet daily, potassium 20 mEq p.o. daily, MD Leon swish and swallow. PHYSICAL EXAMINATION: VITAL SIGNS: Temperature 100.2, pulse 147, blood pressure 94/76, respiratory rate 18, and O2 saturation 95% on room air. GENERAL: A very debilitated, cooperative, and ill-appearing female. She appears to be in distress from discomfort. HEENT: Pupils equal, round, and reactive to light. No conjunctival pallor. No scleral icterus. Nares are patent. Oropharynx is clear of obstruction. Moist mucous membranes. NECK: Trachea midline. No thyromegaly. LYMPH: No cervical lymphadenopathy. No supraclavicular lymphadenopathy. RESPIRATORY: The patient has scattered expiratory wheezes particularly in the apices of each lung. No rhonchi though. No rales. I do not appreciate focal egophony. She does have a labored respiratory effort. CARDIOVASCULAR: Tachycardic. Regular rhythm. No murmurs, rubs, or gallops. The patient does have pitting lower extremity edema. ABDOMEN: Quite distended by examination what appears to be an underlying fluid wave, tender throughout, but nonfocal. She has guarding, but no rebound effect. No hepatosplenomegaly. DERMATOLOGICAL: Warm and dry extremities. No pallor. No cyanosis. History And Physical [address] [address] NAME: BELLA HARRISON : 51 STATUS : ADM IN [facility]#: [id number] AGE: 61 ADM/REG DATE : 12/10/16 MR#: [id number] REPORT SERV DATE: 12/10/16 DICTATED BY: LILLI ALBARADO DATE: 12/10/16 REPORT STATUS : Draft TRANSCRIBED BY: MODL DATE: 12/10/16 PSYCHIATRIC: Normal affect. Good mood. Alert and oriented x3. LABORATORY DATA: Procalcitonin 3.68, albumin 1.6. Troponin 0.17. Brain natriuretic peptide 1051. Lactic acid 1.0. INR 1.6. Liver enzymes within normal limits. White blood cell count 21.5, hemoglobin 8.6, hematocrit 25.3, platelets 407. Sodium 138, potassium 3.1, chloride 105, bicarb 18, BUN 32, creatinine 0.83, glucose 110. Urinalysis shows moderate leukocyte esterase with 47 white blood cells. ABG demonstrates pH 7.43, a PaCO2 of 21, a PaO2 of 74, and a bicarb of 14. STUDIES: 1. Chest x-ray by my own evaluation shows no acute cardiopulmonary process. No evidence of current pneumonia. 2. EKG by my own evaluation shows sinus tachycardia, low QRS voltage. 3. CT scan of the brain without contrast shows no acute intracranial process. ASSESSMENT AND PLAN: 1. Sepsis of unclear source. The patient has a procalcitonin of 3.68, pulse 147, white blood cell count of 21.5, low-grade temperature. [facility] We will check blood cultures. Check urine cultures. Noted a negative chest x- ray now. Question mild urinary tract infection as the cause? I will check a CT scan of the abdomen and pelvis tonight. Obtain Infectious Disease consult for antibiotic guidance and workup guidance with regard to possible sepsis? As the patient has been at a facility, this is some kind of facility-acquired infection? So, we will place on IV vancomycin and IV cefepime for now. 2. Severe back pain, although the patient has chronic spinal stenosis, it seems to have been severely worsened by recent illness and coupled with sepsis. I think it is reasonable to check an MRI of the spine to rule out some entities such as diskitis or osteomyelitis. 3. Chronic kidney disease stage 3. 4. Elevated brain natriuretic peptide and elevated troponin. Question of possible stress response related to this. No chest pain, but the patient does seem to have volume overload with abdominal distention and lower extremity edema. I would like Cardiology to help and follow with the patient, check an echocardiogram to define cardiac function, try IV Bumex and IV albumin. 5. Ankle ulcers. These apparently were attributed to gout flare, but I would like to check an MRI of the ankles to rule out underlying bony involvement such as osteomyelitis. Obtain a Wound Care consult. Check ESR. Check uric acid. KPL/MODL Lilli Albarado M.D. / [id number] History And Physical [address] [place]. [address] NAME: BELLA HARRISON : 51 STATUS : ADM IN [facility]#: [id number] AGE: 61 ADM/REG DATE : 12/10/16 MR#: [id number] REPORT SERV DATE: 12/10/16 DICTATED BY: LILLI ALBARADO DATE: 12/10/16 REPORT STATUS : Draft TRANSCRIBED BY: MODL DATE: 12/10/16 CC: Fauzia Jackson M.D. Lindsay C Crawford, M.D.
--- NOTE | ~2016-12-09 | CN ---
Consultation Report [facility] [address] [place]. [address] NAME: BELLA HARRISON : 51 STATUS : ADM IN [facility]#: [id number] AGE: 61 ADM/REG DATE : 12/10/16 MR#: [id number] REPORT SERV DATE: 12/10/16 DICTATED BY: FARSHAD YO DATE: 12/10/16 REPORT STATUS : Draft TRANSCRIBED BY: MODL DATE: 12/10/16 INFECTIOUS DISEASE CONSULTATION DATE OF CONSULTATION: 12/10/2016 REASON FOR CONSULTATION: Fever and leukocytosis. HISTORY OF PRESENT ILLNESS: This is a 61-year-old female with a past medical history notable for chronic kidney disease, spinal stenosis, chronic anemia, degenerative spine disease, cecal AVM, alcohol abuse, history of UTIs, and depression. She was in the hospital here at [facility] from 11/24 through 11/30 for acute kidney injury on top of the chronic kidney disease, along with diagnosis of acute polyarticular gout made on arthrocentesis of her right knee with positive crystal analysis. Cultures from that joint fluid were negative and I believe are prior to antibiotic therapy started later that day. She was treated with steroids and allopurinol. The patient was transferred to [facility] at discharge. She completed her tapering course of steroids on 12/03. Sometime around 12/05, she developed fevers. A chest x-ray was done, which was felt to show possible bibasilar pneumonia. The patient was started on Levaquin that day, and a Hyman catheter was placed also. The patient continued though to have fevers despite the Levaquin with temperature up to 101.7 and 101.3 on 12/06 and 12/07 and then as high as 102.7 yesterday. She also had a leukocytosis, which was at 27,000 on 12/06 and 19,400 yesterday. The patient was felt to possibly have shingles on her right buttock and was started on acyclovir on 12/08. She did have a swallow study at [facility], which showed some dysfunction, but no clear aspiration. Because of all of these problems, she was transferred here yesterday and after repeat cultures, was started on vancomycin and cefepime. Extensive radiologic studies were also done as outlined below. The patient's chief complaint to me is low back pain. This is a chronic problem, but she says it is worse. She does state that her joints still hurt, particularly her right knee. In addition to the issues above, she has been just weak and unable to walk. PAST MEDICAL HISTORY: As outlined above, otherwise unremarkable. ALLERGIES: LISINOPRIL. PRESENT MEDICATIONS: In addition to the antibiotics mentioned include allopurinol 100 mg daily, Bumex, Citracal, Flexeril, Colace, Neurontin, subcutaneous heparin, magnesium oxide, multivitamins, Protonix, MiraLax, Florastor. SOCIAL HISTORY: Past smoker. Does drink alcohol. . FAMILY HISTORY: Notable for stomach cancer in her father. REVIEW OF SYSTEMS: As outlined above. In addition, she denies headache. Denies any swallowing difficulty. No cough, chest pain, shortness of breath, nausea, vomiting, or diarrhea. She still has her Consultation Report [place] [id number] [facility] [place]. [address] NAME: BELLA HARRISON : 51 STATUS : ADM IN [facility]#: [id number] AGE: 61 ADM/REG DATE : 12/10/16 MR#: [id number] REPORT SERV DATE: 12/10/16 DICTATED BY: FARSHAD YO DATE: 12/10/16 REPORT STATUS : Draft TRANSCRIBED BY: SUSAN DATE: 12/10/16 Hyman catheter. Joint complaints as mentioned. She has chronic left elbow injury, this is unchanged. No bleeding issues. No suprapubic pain right now. The rest of the 12-point review of systems is unremarkable. PHYSICAL EXAMINATION: VITAL SIGNS: The patient weighs 53 kg. Presently afebrile. Blood pressure 105/65. She has been tachycardic presently around 120. Respiratory rate 16. GENERAL: She is alert. She answers questions appropriately, but at times, appears slightly confused and apparently has admitted to seeing things that are not there. She seems anxious. HEAD AND NECK: Extraocular movements intact. The oral cavity shows no thrush. Neck is supple. No adenopathy. LUNGS: Clear to auscultation anteriorly and laterally. CARDIAC: Tachycardic, but regular. Normal S1 and S2. No murmur, gallop, or rub. ABDOMEN: Nondistended, soft, nontender. No masses appreciated. SKIN: Without rash. MUSCULOSKELETAL: The right knee has warmth and soft tissue swelling and some limited range of motion secondary to pain. Both feet are warm and have mild erythema. There is mild tenderness to palpation of both ankles. She has a peripheral IV without phlebitis. LABORATORY STUDIES: White blood cell count today 19.9, hemoglobin 8.0, platelets 378. Creatinine 1.74, which is slightly improved from yesterday; her creatinine on the day of discharge was down to 1.23. Liver function tests are normal. Procalcitonin 3.09; procalcitonin on 11/25 on the date of her arthrocentesis was 19.81. Urinalysis shows moderate leukocyte esterase and 47 white blood cells. Urine culture has 75,000 colonies of probable yeast. Blood cultures are negative to date. IMAGING STUDIES: At [facility], she had a renal ultrasound on 12/07, which showed medical renal disease, right greater than left. Yesterday, here, the patient had a CT scan of the brain without IV contrast, which just showed some stable moderate diffuse cerebral involutional changes and a probable subtle 2 mm old lacunar infarct in left basal ganglia internal capsule. Chest x-ray was negative. CT scan was done of the abdomen and pelvis, this was interpreted as showing some minimal stranding around the lower pole of the right kidney and a full gallbladder without gallstones or ductal dilatation. There is also a large hiatal hernia and multilevel degenerative changes of her lumbar spine, which on my review do not appear changed from the 2015 CT scan. IMPRESSION: The source of the patient's recent fevers and persistent leukocytosis is not entirely clear. I do not see a definite infection. She does though have mild pyuria, and the urine culture is growing probable yeast. She had a Hyman catheter placed on 12/05. Overall, I doubt she has a true Kim urinary tract infection, but with the mild perinephric stranding seen on the right kidney on the CT scan, must consider this possibility. Her gout still seems active to me on physical exam, particularly in her right knee, and it may have flared again after she finished her steroid taper on 12/03. Her fevers began shortly after that. Must also consider the possibility of an allopurinol Consultation Report [place] [id number] [place]. [address] NAME: BELLA HARRISON : 51 STATUS : ADM IN [facility]#: [id number] AGE: 61 ADM/REG DATE : 12/10/16 MR#: [id number] REPORT SERV DATE: 12/10/16 DICTATED BY: FARSHAD YO DATE: 12/10/16 REPORT STATUS : Draft TRANSCRIBED BY: SUSAN DATE: 12/10/16 hypersensitivity, but she does not have a rash. I should note on physical exam that I do not see evidence of zoster on the right buttock, just a couple of superficial ulcers. The acyclovir at this dose with her creatinine clearance could be causing some neurologic side effects. The patient's chief complaint is her low back pain, this is chronic, but worse. The CT images do not show anything suspicious for infection on my review with the radiologist. PLAN: 1. We will check uric acid. 2. We will discontinue the antibacterials and the acyclovir. 3. We will begin fluconazole for the possibility of a Kim UTI. 4. She may need steroids again to calm down her gout. 5. If fevers persist, we may need to get an MRI of the spine for thoroughness. YOSELIN/SUSAN Farshad oY M.D. / [id number] CC: Fauzia Jackson M.D.
[~2016-12-09 21:19] MED LIST changes: +8 HOUR650 MG PO; +L40 PO
[2016-12-09 22:35] LABS: ASCORBIC ACID (UR NOT ORDER) NEG (NEG); BILIRUBIN, URINE NEGATIVE (NEG); ER URINALYSIS TAT 0 Hrs 20 Mins; KETONE, URINE NEGATIVE (NEG); LEUKOCYTE ESTERASE(NOT OR MOD (NEG); NITRITE (URINE) NEG (NEG); WBC (NOT ORDERED) (RFLEX) 47 (0-5)
[2016-12-09 22:39] LABS: BASOPHILS 0.1 %; BASOPHILS ABSOLUTE 0.03 10/3/uL (0.0-0.16); EOSINOPHILS 0.2 %; EOSINOPHILS ABSOLUTE 0.05 10/3/uL (0.0-0.53); ER CBC TAT 0 Hrs 08 Mins; HEMATOCRIT 25.3 % (36.0-48.0); HEMOGLOBIN 8.6 g/dL (12.0-16.0); IMMATURE GRANULOCYTES 1.3 %; IMMATURE GRANULOCYTES ABSOLUTE 0.27 10/3/uL (0.0-0.11); LYMPHOCYTES 3.3 %; LYMPHOCYTES ABSOLUTE 0.72 10/3/uL (0.67-4.30); MANUAL DIFF NO %; MEAN CORPUSCULAR HEMOGLOB 30.5 pg (26.0-34.0); MEAN CORPUSCULAR VOLUME 89.7 fL (80-100); MEAN PLATELET VOLUME 9.8 fL (9.2-13.0); MONOCYTES 4.6 %; MONOCYTES ABSOLUTE 0.98 10/3/uL (0.21-1.20); NEUTROPHILS 90.5 %; NEUTROPHILS ABSOLUTE 19.46 10/3/uL (2.02-8.40); PLATELET COUNT 407 10/3/uL (150-400); RBC DISTRIBUTION WIDTH 18.8 % (12.0-16.0); RED CELL COUNT 2.82 10/6/uL (4.0-5.6); WHITE BLOOD CELLS 21.5 10/3/uL (4.5-10.5)
[2016-12-09 22:47] LABS: INTERNATIONAL NORMAL RATI 1.6 UNITS (-); PARTIAL THROMBO TIME 39.1 SEC (22.5-37.2)
[2016-12-09 22:48] LABS: PROTIME (NOT ORD) 18.8 SEC (12.0-14.5)
[2016-12-09 22:57] LABS: ANISOCYTOSIS 1+ (5-10/OIF) (0-5/OIF); BAND NEUTROPHILS 2 %; ER DIFF TAT 0 Hrs 26 Mins; LYMPHOCYTES 6 %; LYMPHOCYTES ABSOLUTE (CALC) 1.29 10/3/uL (0.67-4.30); MONOCYTES 4 %; MONOCYTES ABSOLUTE (CALC) 0.86 10/3/uL (0.21-1.20); NEUTROPHILS ABSOLUTE (CALC) 19.35 10/3/uL (2.02-8.40); PLATELET ESTIMATE SLT INC (ADEQUATE); SEGMENTED NEUTROPHIL (0) 88 %; TOTAL NUCLEATED CELLS 100
[2016-12-09 22:58] LABS: A/G RATIO 0.4 (0.7-1.9); ALBUMIN 1.6 G/DL (3.5-5.0); CHLORIDE, SERUM 105 MMOL/L (96-112); CO2 (CARBON DIOXIDE) 18 MMOL/L (24-34); GIANT PLATELET RARE; GLUCOSE, SERUM 110 MG/DL (60-99); OVALOCYTES 1+ (3-10/OIF) (0-2/OIF); POTASSIUM, SERUM 3.1 MMOL/L (3.5-5.3); SGOT(AST) 20 U/L (5-40); SGPT(ALT) 12 U/L (5-65); SODIUM, SERUM 138 MMOL/L (135-148); SPHEROCYTES OCC (0-2/OIF); TOTAL BILIRUBIN 0.5 MG/DL (0-1.2); TOTAL PROTEIN 5.6 G/DL (6.0-8.5)
[2016-12-09 22:59] LABS: ALKALINE PHOSPHATASE 114 U/L (45-117); BUN (BLOOD UREA NITROGEN) 32 MG/DL (6-23); CALCIUM, SERUM 6.2 MG/DL (8.5-10.4); CHEST PAIN PROFILE TAT 0 Hrs 28 Mins; CREATININE 1.83 MG/DL (0.55-1.02); GFR AFRICAN AMERICAN 33 ML/MIN (>=60); GFR NON AFRICAN AMERICAN 29 ML/MIN (>=60); TROPONIN I 0.17 NG/ML (<0.05)
[2016-12-10] MEDS ORDERED: ZOVI800 PO (00:44)
[2016-12-10] MEDS ORDERED: Z100 PO (00:44)
[2016-12-10] MEDS ORDERED: CITRACAL PO (00:45)
[2016-12-10] MEDS ORDERED: FLEXERIL5 MG PO (00:45)
[2016-12-10] MEDS ORDERED: DSS PO (00:47)
[2016-12-10] MEDS ORDERED: L20 PO (00:47)
[2016-12-10] MEDS ORDERED: NEUR100 PO (00:47)
[2016-12-10] MEDS ORDERED: ANDERSON PO (00:47)
[2016-12-10] MEDS ORDERED: NEUR300 PO (00:48)
[2016-12-10] MEDS ORDERED: HEPA50006 SC (00:48)
[2016-12-10] MEDS ORDERED: ACIDOPHILU2 PO (00:49)
[2016-12-10] MEDS ORDERED: LEVAQUIN750 MG PO (00:50)
[2016-12-10] MEDS ORDERED: MAGOX4 PO (00:50)
[2016-12-10] MEDS ORDERED: PROTONIX PO ×2 (00:51→00:53)
[2016-12-10] MEDS ORDERED: MULTIVIT/MIN PO (00:51)
[2016-12-10] MEDS ORDERED: MIRALAX POWDER1 PKT PO (00:51)
[2016-12-10] MEDS ORDERED: KDUR20 PO (00:52)
[2016-12-10] MEDS ORDERED: T PO (00:52)
[2016-12-10] MEDS ORDERED: NORCO1 TA1 PO (00:53)
[2016-12-10] MEDS ORDERED: X25 PO (00:53)
[2016-12-10] MEDS ORDERED: BISR PR (00:53)
[2016-12-10] MEDS ORDERED: ATROVENTUD INH (00:54)
[2016-12-10 07:32] LABS: HEMATOCRIT 23.3 % (36.0-48.0); MEAN CORPUS HGB CONC 34.3 g/dL (32.0-36.0); MEAN CORPUSCULAR HEMOGLOB 30.7 pg (26.0-34.0); MEAN CORPUSCULAR VOLUME 89.3 fL (80-100); MEAN PLATELET VOLUME 9.4 fL (9.2-13.0); PLATELET COUNT 378 10/3/uL (150-400); RBC DISTRIBUTION WIDTH 18.8 % (12.0-16.0); RED CELL COUNT 2.61 10/6/uL (4.0-5.6); WHITE BLOOD CELLS 19.9 10/3/uL (4.5-10.5)
[2016-12-10 07:34] LABS: MANUAL DIFF YES %
[2016-12-10 07:39] LABS: INTERNATIONAL NORMAL RATI 1.4 UNITS (-)
[2016-12-10 07:40] LABS: PARTIAL THROMBO TIME 38.3 SEC (22.5-37.2)
[2016-12-10 07:53] LABS: A/G RATIO 0.5 (0.7-1.9); ALBUMIN 1.7 G/DL (3.5-5.0); ALKALINE PHOSPHATASE 104 U/L (45-117); BUN (BLOOD UREA NITROGEN) 31 MG/DL (6-23); CHLORIDE, SERUM 106 MMOL/L (96-112); CO2 (CARBON DIOXIDE) 19 MMOL/L (24-34); CPK 178 U/L (0-200); CREATININE 1.74 MG/DL (0.55-1.02); GFR AFRICAN AMERICAN 36 ML/MIN (>=60); GFR NON AFRICAN AMERICAN 31 ML/MIN (>=60); GLOBULIN 3.7 G/DL (2.5-4.1); POTASSIUM, SERUM 3.1 MMOL/L (3.5-5.3); SGOT(AST) 15 U/L (5-40); SGPT(ALT) 11 U/L (5-65); SODIUM, SERUM 138 MMOL/L (135-148); TOTAL BILIRUBIN 0.6 MG/DL (0-1.2); TOTAL PROTEIN 5.4 G/DL (6.0-8.5)
[2016-12-10 07:54] LABS: CALCIUM, SERUM 5.9 MG/DL (8.5-10.4); CK-MB 1.8 NG/ML; GLUCOSE, SERUM 87 MG/DL (60-99); TROPONIN I 0.07 NG/ML (<0.05)
[2016-12-10 07:59] LABS: BAND NEUTROPHILS 3 %; LYMPHOCYTES 4 %; MONOCYTES 4 %; NEUTROPHILS ABSOLUTE (CALC) 18.31 10/3/uL (2.02-8.40); SEGMENTED NEUTROPHIL (0) 89 %; TOTAL NUCLEATED CELLS 100
[2016-12-10 08:00] LABS: ANISOCYTOSIS 1+ (5-10/OIF) (0-5/OIF); PLATELET ESTIMATE ADQ (ADEQUATE); RBC MORPHOLOGY NORM (NORMAL)
[2016-12-10 10:12] LABS: PROCALCITONIN 3.09 ng/mL (<0.5)
[2016-12-10 22:30] LABS: BUN (BLOOD UREA NITROGEN) 30 MG/DL (6-23); CHLORIDE, SERUM 106 MMOL/L (96-112); COMPLEMENT C3 124 MG/DL (75-161); COMPLEMENT C4 20.5 MG/DL (16-47); GFR AFRICAN AMERICAN 34 ML/MIN (>=60); GFR NON AFRICAN AMERICAN 29 ML/MIN (>=60); POTASSIUM, SERUM 3.5 MMOL/L (3.5-5.3); SODIUM, SERUM 139 MMOL/L (135-148)
[2016-12-10 22:31] LABS: CALCIUM, SERUM 6.5 MG/DL (8.5-10.4); CO2 (CARBON DIOXIDE) 15 MMOL/L (24-34); GLUCOSE, SERUM 255 MG/DL (60-99)
[2016-12-11 06:01] LABS: BASOPHILS 0.1 %; BASOPHILS ABSOLUTE 0.01 10/3/uL (0.0-0.16); EOSINOPHILS 0 %; IMMATURE GRANULOCYTES 0.7 %; IMMATURE GRANULOCYTES ABSOLUTE 0.12 10/3/uL (0.0-0.11); LYMPHOCYTES 1.9 %; LYMPHOCYTES ABSOLUTE 0.31 10/3/uL (0.67-4.30); MEAN CORPUS HGB CONC 35.4 g/dL (32.0-36.0); MEAN CORPUSCULAR HEMOGLOB 31.4 pg (26.0-34.0); MEAN CORPUSCULAR VOLUME 88.6 fL (80-100); MEAN PLATELET VOLUME 9.4 fL (9.2-13.0); MONOCYTES 0.8 %; MONOCYTES ABSOLUTE 0.13 10/3/uL (0.21-1.20); NEUTROPHILS 96.5 %; NEUTROPHILS ABSOLUTE 15.63 10/3/uL (2.02-8.40); PLATELET COUNT 322 10/3/uL (150-400); RBC DISTRIBUTION WIDTH 18.8 % (12.0-16.0); WHITE BLOOD CELLS 16.2 10/3/uL (4.5-10.5)
[2016-12-11 06:02] LABS: HEMATOCRIT 19.5 % (36.0-48.0); HEMOGLOBIN 6.9 g/dL (12.0-16.0)
[2016-12-11 06:03] LABS: MANUAL DIFF NO %
[2016-12-11 06:15] LABS: A/G RATIO 0.8 (0.7-1.9); ALBUMIN 2.4 G/DL (3.5-5.0); ALKALINE PHOSPHATASE 96 U/L (45-117); BUN (BLOOD UREA NITROGEN) 32 MG/DL (6-23); CALCIUM, SERUM 7.6 MG/DL (8.5-10.4); CHLORIDE, SERUM 107 MMOL/L (96-112); CO2 (CARBON DIOXIDE) 19 MMOL/L (24-34); CREATININE 1.86 MG/DL (0.55-1.02); GFR AFRICAN AMERICAN 33 ML/MIN (>=60); GFR NON AFRICAN AMERICAN 28 ML/MIN (>=60); GLOBULIN 3.2 G/DL (2.5-4.1); GLUCOSE, SERUM 241 MG/DL (60-99); POTASSIUM, SERUM 3.7 MMOL/L (3.5-5.3); SGOT(AST) 9 U/L (5-40); SGPT(ALT) 11 U/L (5-65); SODIUM, SERUM 138 MMOL/L (135-148); TOTAL PROTEIN 5.6 G/DL (6.0-8.5)
[2016-12-11 10:56] LABS: HEMOGLOBIN 7.3 g/dL (12.0-16.0)
[2016-12-11 11:00] LABS: HEMATOCRIT 20.9 % (36.0-48.0)
[2016-12-11 11:20] LABS: T PROTEIN (ELECT)(NOT OR 5.3 G/DL (6.0-8.5)
[2016-12-12 05:42] LABS: HEMOGLOBIN 8.5 g/dL (12.0-16.0); MEAN CORPUS HGB CONC 34.3 g/dL (32.0-36.0); MEAN CORPUSCULAR HEMOGLOB 30.1 pg (26.0-34.0); MEAN CORPUSCULAR VOLUME 87.9 fL (80-100); MEAN PLATELET VOLUME 9.8 fL (9.2-13.0); PLATELET COUNT 362 10/3/uL (150-400); RBC DISTRIBUTION WIDTH 18.4 % (12.0-16.0)
[2016-12-12 05:44] LABS: HEMATOCRIT 24.8 % (36.0-48.0); MANUAL DIFF YES %; RED CELL COUNT 2.82 10/6/uL (4.0-5.6); WHITE BLOOD CELLS 24.7 10/3/uL (4.5-10.5)
[2016-12-12 06:02] LABS: A/G RATIO 0.6 (0.7-1.9); ALBUMIN 2.1 G/DL (3.5-5.0); ALKALINE PHOSPHATASE 89 U/L (45-117); BUN (BLOOD UREA NITROGEN) 43 MG/DL (6-23); CHLORIDE, SERUM 111 MMOL/L (96-112); CO2 (CARBON DIOXIDE) 18 MMOL/L (24-34); GFR AFRICAN AMERICAN 37 ML/MIN (>=60); GFR NON AFRICAN AMERICAN 32 ML/MIN (>=60); GLOBULIN 3.5 G/DL (2.5-4.1); GLUCOSE, SERUM 173 MG/DL (60-99); POTASSIUM, SERUM 3.2 MMOL/L (3.5-5.3); PREALBUMIN 6.7 MG/DL (17.0-43.0); SGOT(AST) 12 U/L (5-40); SGPT(ALT) 11 U/L (5-65); SODIUM, SERUM 143 MMOL/L (135-148); TOTAL PROTEIN 5.6 G/DL (6.0-8.5)
[2016-12-12 06:03] LABS: TOTAL BILIRUBIN 0.5 MG/DL (0-1.2)
[2016-12-12 06:12] LABS: ANISOCYTOSIS 1+ (5-10/OIF) (0-5/OIF); BAND NEUTROPHILS 2 %; LYMPHOCYTES 4 %; LYMPHOCYTES ABSOLUTE (CALC) 0.99 10/3/uL (0.67-4.30); MONOCYTES 3 %; MONOCYTES ABSOLUTE (CALC) 0.74 10/3/uL (0.21-1.20); NEUTROPHILS ABSOLUTE (CALC) 22.97 10/3/uL (2.02-8.40); PLATELET ESTIMATE ADQ (ADEQUATE); SEGMENTED NEUTROPHIL (0) 91 %; TOTAL NUCLEATED CELLS 100
[2016-12-12 06:28] LABS: PROCALCITONIN 2.27 ng/mL (<0.5)
[2016-12-12 14:23] LABS: CREATININE, UR 40.1 MG/DL; T.P. URINE (NOT ORDER RAN 86.6 MG/DL
[2016-12-12 14:34] LABS: CREAT 24HR UR (NOT ORDER) 0.28 G/T VOL (0.60-1.80); T.P.24HR UR (NOT ORDER) 606 MG/24HR (40-150); T.V. 24HR UR (NOT ORD) 700 ML (600-1600)
[2016-12-13 05:40] LABS: BASOPHILS 0.1 %; BASOPHILS ABSOLUTE 0.01 10/3/uL (0.0-0.16); EOSINOPHILS 0 %; HEMATOCRIT 25.7 % (36.0-48.0); HEMOGLOBIN 8.8 g/dL (12.0-16.0); IMMATURE GRANULOCYTES 0.8 %; IMMATURE GRANULOCYTES ABSOLUTE 0.14 10/3/uL (0.0-0.11); LYMPHOCYTES 4.7 %; LYMPHOCYTES ABSOLUTE 0.86 10/3/uL (0.67-4.30); MANUAL DIFF NO %; MEAN CORPUS HGB CONC 34.2 g/dL (32.0-36.0); MEAN CORPUSCULAR HEMOGLOB 30.6 pg (26.0-34.0); MEAN CORPUSCULAR VOLUME 89.2 fL (80-100); MEAN PLATELET VOLUME 9.8 fL (9.2-13.0); MONOCYTES ABSOLUTE 0.92 10/3/uL (0.21-1.20); NEUTROPHILS 89.4 %; PLATELET COUNT 400 10/3/uL (150-400); RED CELL COUNT 2.88 10/6/uL (4.0-5.6); WHITE BLOOD CELLS 18.2 10/3/uL (4.5-10.5)
[2016-12-13 05:56] LABS: ALBUMIN 2.1 G/DL (3.5-5.0); CALCIUM, SERUM 9.1 MG/DL (8.5-10.4); CHLORIDE, SERUM 112 MMOL/L (96-112); CO2 (CARBON DIOXIDE) 21 MMOL/L (24-34); GFR AFRICAN AMERICAN 37 ML/MIN (>=60); GFR NON AFRICAN AMERICAN 32 ML/MIN (>=60); PHOSPHORUS, SERUM 2.5 MG/DL (2.5-4.5); SODIUM, SERUM 143 MMOL/L (135-148)
[2016-12-13 05:57] LABS: BUN (BLOOD UREA NITROGEN) 47 MG/DL (6-23); GLUCOSE, SERUM 135 MG/DL (60-99)
[2016-12-13 10:14] LABS: A/G 1.14 RATIO (0.9-2.10); ALB RELATIVE % 53.3 % (60.0-89.0); ALBUMIN (ELECTRO) 2.82 GM/DL (3.2-5.5); ALPHA 1 (ELECTRO) 0.49 GM/DL (0.1-0.4); ALPHA 1 RELAT % (NOT ORD) 9.2 % (1.0-4.0); ALPHA 2 (ELECTRO) 1.05 GM/DL (0.5-1.10); ALPHA 2 RELAT % 19.9 % (4.5-26.0); BETA GLOBULIN (SPE) 0.46 GM/DL (0.60-1.30); BETA RELATIVE % 8.6 % (9.0-22.0); GAMMA GLOBULIN (SPE) 0.48 G/DL (0.70-1.60)
[2016-12-14 05:59] LABS: BASOPHILS 0.1 %; BASOPHILS ABSOLUTE 0.01 10/3/uL (0.0-0.16); EOSINOPHILS ABSOLUTE 0.14 10/3/uL (0.0-0.53); HEMOGLOBIN 9.7 g/dL (12.0-16.0); IMMATURE GRANULOCYTES 0.8 %; IMMATURE GRANULOCYTES ABSOLUTE 0.11 10/3/uL (0.0-0.11); LYMPHOCYTES 8.8 %; LYMPHOCYTES ABSOLUTE 1.23 10/3/uL (0.67-4.30); MEAN CORPUS HGB CONC 33.6 g/dL (32.0-36.0); MEAN CORPUSCULAR HEMOGLOB 30.4 pg (26.0-34.0); MEAN CORPUSCULAR VOLUME 90.6 fL (80-100); MEAN PLATELET VOLUME 10.1 fL (9.2-13.0); MONOCYTES ABSOLUTE 0.56 10/3/uL (0.21-1.20); NEUTROPHILS 85.3 %; NEUTROPHILS ABSOLUTE 11.88 10/3/uL (2.02-8.40); PLATELET COUNT 433 10/3/uL (150-400); RBC DISTRIBUTION WIDTH 19.2 % (12.0-16.0); RED CELL COUNT 3.19 10/6/uL (4.0-5.6); WHITE BLOOD CELLS 13.9 10/3/uL (4.5-10.5)
[2016-12-14 06:00] LABS: HEMATOCRIT 28.9 % (36.0-48.0); MANUAL DIFF NO %
[2016-12-14 06:06] LABS: D-DIMER QUANTITATIVE 3.84 ug/mLFEU (< 0.50)
[2016-12-14 06:18] LABS: ALBUMIN 2.1 G/DL (3.5-5.0); BUN (BLOOD UREA NITROGEN) 41 MG/DL (6-23); CALCIUM, SERUM 8.9 MG/DL (8.5-10.4); CHLORIDE, SERUM 113 MMOL/L (96-112); CO2 (CARBON DIOXIDE) 23 MMOL/L (24-34); CREATININE 1.51 MG/DL (0.55-1.02); GFR AFRICAN AMERICAN 42 ML/MIN (>=60); GFR NON AFRICAN AMERICAN 36 ML/MIN (>=60); GLUCOSE, SERUM 109 MG/DL (60-99); PHOSPHORUS, SERUM 1.7 MG/DL (2.5-4.5); POTASSIUM, SERUM 3.4 MMOL/L (3.5-5.3); SODIUM, SERUM 146 MMOL/L (135-148)
[2016-12-14 10:41] LABS: ANA TITER <1:40 TITER
[2016-12-14 22:30] LABS: ANCA <1:20 (()); MYELOPEROXIDASE ANTIBODY <0.2 AI (<1.0); PROTEINASE 3 ANTIBODY <0.2 AI (<1.0)
[2016-12-15 06:11] LABS: BUN (BLOOD UREA NITROGEN) 34 MG/DL (6-23); CALCIUM, SERUM 8.9 MG/DL (8.5-10.4); CHLORIDE, SERUM 112 MMOL/L (96-112); CO2 (CARBON DIOXIDE) 22 MMOL/L (24-34); CREATININE 1.27 MG/DL (0.55-1.02); GFR AFRICAN AMERICAN 52 ML/MIN (>=60); GFR NON AFRICAN AMERICAN 45 ML/MIN (>=60); GLUCOSE, SERUM 88 MG/DL (60-99); POTASSIUM, SERUM 3.5 MMOL/L (3.5-5.3); SODIUM, SERUM 144 MMOL/L (135-148)
[2016-12-16 05:47] LABS: BASOPHILS 0.4 %; BASOPHILS ABSOLUTE 0.04 10/3/uL (0.0-0.16); EOSINOPHILS ABSOLUTE 0.97 10/3/uL (0.0-0.53); HEMOGLOBIN 8.7 g/dL (12.0-16.0); IMMATURE GRANULOCYTES 2.7 %; IMMATURE GRANULOCYTES ABSOLUTE 0.29 10/3/uL (0.0-0.11); LYMPHOCYTES 12.8 %; LYMPHOCYTES ABSOLUTE 1.38 10/3/uL (0.67-4.30); MEAN CORPUS HGB CONC 33.7 g/dL (32.0-36.0); MEAN CORPUSCULAR HEMOGLOB 31.2 pg (26.0-34.0); MEAN CORPUSCULAR VOLUME 92.5 fL (80-100); MEAN PLATELET VOLUME 10.3 fL (9.2-13.0); MONOCYTES 6.3 %; MONOCYTES ABSOLUTE 0.68 10/3/uL (0.21-1.20); NEUTROPHILS 68.8 %; NEUTROPHILS ABSOLUTE 7.46 10/3/uL (2.02-8.40); PLATELET COUNT 442 10/3/uL (150-400); RBC DISTRIBUTION WIDTH 19.4 % (12.0-16.0); RED CELL COUNT 2.79 10/6/uL (4.0-5.6); WHITE BLOOD CELLS 10.8 10/3/uL (4.5-10.5)
[2016-12-16 06:01] LABS: CALCIUM, SERUM 9.2 MG/DL (8.5-10.4); CHLORIDE, SERUM 112 MMOL/L (96-112); CO2 (CARBON DIOXIDE) 24 MMOL/L (24-34); CREATININE 1.39 MG/DL (0.55-1.02); GFR AFRICAN AMERICAN 47 ML/MIN (>=60); GFR NON AFRICAN AMERICAN 40 ML/MIN (>=60); GLUCOSE, SERUM 88 MG/DL (60-99); POTASSIUM, SERUM 4.1 MMOL/L (3.5-5.3); SODIUM, SERUM 143 MMOL/L (135-148)
[2016-12-16 06:02] LABS: BUN (BLOOD UREA NITROGEN) 30 MG/DL (6-23)
[2016-12-16 06:05] LABS: HEMATOCRIT 25.8 % (36.0-48.0); MANUAL DIFF NO %
[2016-12-16 08:17] LABS: INTERNATIONAL NORMAL RATI 1.1 UNITS (-)
[2016-12-16 08:18] LABS: PARTIAL THROMBO TIME 36.5 SEC (22.5-37.2)
[2016-12-16 08:19] LABS: PROTIME (NOT ORD) 14.1 SEC (12.0-14.5)
[2016-12-20 05:43] LABS: HEMATOCRIT 25.8 % (36.0-48.0); HEMOGLOBIN 8.4 g/dL (12.0-16.0); MANUAL DIFF YES %; MEAN CORPUS HGB CONC 32.6 g/dL (32.0-36.0); MEAN CORPUSCULAR HEMOGLOB 30.1 pg (26.0-34.0); MEAN CORPUSCULAR VOLUME 92.5 fL (80-100); MEAN PLATELET VOLUME 10.1 fL (9.2-13.0); PLATELET COUNT 672 10/3/uL (150-400); RBC DISTRIBUTION WIDTH 18.9 % (12.0-16.0); RED CELL COUNT 2.79 10/6/uL (4.0-5.6); WHITE BLOOD CELLS 14.6 10/3/uL (4.5-10.5)
[2016-12-20 05:52] LABS: A/G RATIO 0.5 (0.7-1.9); ALBUMIN 1.8 G/DL (3.5-5.0); CHLORIDE, SERUM 112 MMOL/L (96-112); CO2 (CARBON DIOXIDE) 22 MMOL/L (24-34); CREATININE 1.36 MG/DL (0.55-1.02); GFR AFRICAN AMERICAN 48 ML/MIN (>=60); GFR NON AFRICAN AMERICAN 41 ML/MIN (>=60); GLOBULIN 3.3 G/DL (2.5-4.1); GLUCOSE, SERUM 95 MG/DL (60-99); SGOT(AST) 12 U/L (5-40); SGPT(ALT) 9 U/L (5-65); SODIUM, SERUM 140 MMOL/L (135-148); TOTAL BILIRUBIN 0.3 MG/DL (0-1.2); TOTAL PROTEIN 5.1 G/DL (6.0-8.5)
[2016-12-20 05:53] LABS: ALKALINE PHOSPHATASE 122 U/L (45-117); BUN (BLOOD UREA NITROGEN) 21 MG/DL (6-23); CALCIUM, SERUM 7.7 MG/DL (8.5-10.4); POTASSIUM, SERUM 2.8 MMOL/L (3.5-5.3)
[2016-12-20 06:14] LABS: ANISOCYTOSIS 1+ (5-10/OIF) (0-5/OIF); BAND NEUTROPHILS 2 %; EOSINOPHILS 1 %; EOSINOPHILS ABSOLUTE (CALC) 0.15 10/3/uL (0.0-0.53); IMMATURE GRANS ABSOLUTE (CALC) 0.58 10/3/uL (0.0-0.11); LYMPHOCYTES 6 %; LYMPHOCYTES ABSOLUTE (CALC) 0.88 10/3/uL (0.67-4.30); METAMYELOCYTES 2 %; MONOCYTES 4 %; MONOCYTES ABSOLUTE (CALC) 0.58 10/3/uL (0.21-1.20); MYELOCYTES 2 %; NEUTROPHILS ABSOLUTE (CALC) 12.41 10/3/uL (2.02-8.40); PLATELET ESTIMATE INC (ADEQUATE); SEGMENTED NEUTROPHIL (0) 83 %; TOTAL NUCLEATED CELLS 100
[2016-12-21 06:00] LABS: ALBUMIN 1.8 G/DL (3.5-5.0); BUN (BLOOD UREA NITROGEN) 24 MG/DL (6-23); CHLORIDE, SERUM 114 MMOL/L (96-112); CO2 (CARBON DIOXIDE) 22 MMOL/L (24-34); CREATININE 1.48 MG/DL (0.55-1.02); GFR AFRICAN AMERICAN 43 ML/MIN (>=60); GFR NON AFRICAN AMERICAN 37 ML/MIN (>=60); GLUCOSE, SERUM 79 MG/DL (60-99); SODIUM, SERUM 142 MMOL/L (135-148)
[2016-12-21 06:01] LABS: PHOSPHORUS, SERUM 2.3 MG/DL (2.5-4.5); POTASSIUM, SERUM 5.4 MMOL/L (3.5-5.3)
[2016-12-22 05:08] LABS: HEMATOCRIT 23.8 % (36.0-48.0); HEMOGLOBIN 7.6 g/dL (12.0-16.0); MEAN CORPUS HGB CONC 31.9 g/dL (32.0-36.0); MEAN CORPUSCULAR HEMOGLOB 30.2 pg (26.0-34.0); MEAN CORPUSCULAR VOLUME 94.4 fL (80-100); MEAN PLATELET VOLUME 10.2 fL (9.2-13.0); RBC DISTRIBUTION WIDTH 19.5 % (12.0-16.0); RED CELL COUNT 2.52 10/6/uL (4.0-5.6); WHITE BLOOD CELLS 15.4 10/3/uL (4.5-10.5)
[2016-12-22 05:11] LABS: PLATELET COUNT 750 10/3/uL (150-400)
[2016-12-22 05:12] LABS: MANUAL DIFF YES %
[2016-12-22 05:18] LABS: CALCIUM, SERUM 8.2 MG/DL (8.5-10.4); CHLORIDE, SERUM 116 MMOL/L (96-112); CO2 (CARBON DIOXIDE) 22 MMOL/L (24-34); CREATININE 1.61 MG/DL (0.55-1.02); GFR AFRICAN AMERICAN 39 ML/MIN (>=60); GFR NON AFRICAN AMERICAN 34 ML/MIN (>=60); GLUCOSE, SERUM 90 MG/DL (60-99); PHOSPHORUS, SERUM 2.5 MG/DL (2.5-4.5); POTASSIUM, SERUM 4.9 MMOL/L (3.5-5.3); SODIUM, SERUM 142 MMOL/L (135-148)
[2016-12-22 05:22] LABS: ALBUMIN 2.5 G/DL (3.5-5.0); BUN (BLOOD UREA NITROGEN) 28 MG/DL (6-23)
[2016-12-22 05:51] LABS: BAND NEUTROPHILS 2 %; EOSINOPHILS 3 %; EOSINOPHILS ABSOLUTE (CALC) 0.46 10/3/uL (0.0-0.53); IMMATURE GRANS ABSOLUTE (CALC) 0.31 10/3/uL (0.0-0.11); LYMPHOCYTES 17 %; LYMPHOCYTES ABSOLUTE (CALC) 2.62 10/3/uL (0.67-4.30); METAMYELOCYTES 2 %; MONOCYTES 2 %; MONOCYTES ABSOLUTE (CALC) 0.31 10/3/uL (0.21-1.20); RBC MORPHOLOGY NORM (NORMAL); SEGMENTED NEUTROPHIL (0) 74 %; TOTAL NUCLEATED CELLS 100
== END 2016-12-22 17:52 | DRG 478 ==
LOC: ER 21:19 → 5NO 12-10 01:26
PROVIDERS: Emergency Medicine; Hospitalist; Internal Medicine; Internal Medicine Hematology & Oncology; Internal Medicine Infectious Disease; Orthopaedic Surgery
PROC: 0QB00ZX Excision of Lumbar Vertebra, Open Approach, Diagnostic (ICD-10-PCS; principal; 2016-12-16)
DX: M48.07 Spinal stenosis, lumbosacral region (principal); I24.8 Other forms of acute ischemic heart disease; N17.9 Acute kidney failure, unspecified; N18.3 Chronic kidney disease, stage 3 (moderate); L89.519 Pressure ulcer of right ankle, unspecified stage; E88.09 Other disorders of plasma-protein metabolism, not elsewhere classified; E83.42 Hypomagnesemia; L89.529 Pressure ulcer of left ankle, unspecified stage; M10.9 Gout, unspecified; Z87.440 Personal history of urinary (tract) infections; D63.1 Anemia in chronic kidney disease; E87.6 Hypokalemia; M46.46 Discitis, unspecified, lumbar region
CPT/HCPCS: 20225; 36415; 36600; 70450; 71010; 72148; 74176; 77002; 78582; 80048; 80053; 80069; 81001; 81050; 82272; 82330; 82550; 82553; 82570; 82803; 82947; 82962; 83516; 83516-59; 83605; 83735; 83880; 84132; 84134; 84145; 84155; 84156; 84165; 84295; 84443; 84484; 84550; 85014; 85018; 85025; 85379; 85610; 85652; 85730; 86039; 86140; 86160; 86255; 86334; 86592; 86850; 86900; 86901; 86920; 87015; 87040; 87070; 87075; 87086; 87102; 87106; 87116; 87186; 87205; 88307; 88312; 93005; 93306; 93970; 94640; 96365; 97110-GP; 97116-GP; 97163-GP; 97530-GP; 99152; 99285; A9270-GY; A9540; A9567; J0610; J0692; J1940; J1956; J2250; J2930; J3010; J3370; J3475; P9016; P9047